=== PATIENT | female | born 1960 | race Hispanic/Latino ===

== ENCOUNTER 2020-07-09 13:21 | Emergency (ER) | payer SELFPAY ==
[2020-07-09] MEDS ORDERED: NA CHLORIDE 0.9% 500 ML ONE (14:25)
[2020-07-09] MEDS ORDERED: MORPHINE 2 MG/ML SYR ONE (14:25)
[2020-07-09] MEDS ORDERED: ONDANSETRON 4 MG/2 ML VIAL ONE ×2 (14:25→16:46)
[2020-07-09 15:11] LABS: ALT/SGPT 32 U/L (12-78); Albumin 3.7 g/dL (3.4-5.0); Alkaline Phosphatase 124 U/L (45-117); BUN Blood Urea Nitrogen 13 mg/dL (7-18); Bicarbonate 24 mmol/L (21-32); Bilirubin Direct < 0.1 mg/dL (0-0.2); Bilirubin Total 0.5 mg/dL (0.2-1.0); Glucose Level 134 mg/dL (74-106); Lipase 185 U/L (73-393); Protein, Total 7.5 g/dL (6.4-8.2); Sodium Level 141 mmol/L (136-145)
[2020-07-09 15:15] LABS: Potassium 4.1 mmol/L (3.5-5.1)
[2020-07-09 15:16] LABS: AST/SGOT 19 U/L (15-37)
[2020-07-09 15:17] LABS: Absolute Lymphocytes (CBC) 1.2 K/uL (0.7-4.9); Basophils % 0.9 % (0-1.3); Hematocrit 37.8 % (36.0-45.0); Lymphocytes % 14.3 % (15.3-44.8); MPV 8.3 fL (7.6-11.3); RBC Red Blood Cell Count 4.43 M/uL (3.86-4.86)
[2020-07-09 15:24] LABS: Urine Bacteria <20 /HPF (<20); Urine Culture Reflex Order NOT NEEDED; Urine Mucus 1+ /HPF (NONE SEEN); Urine RBC <5 /HPF (NONE SEEN)
[2020-07-09 16:10] LABS: Urine Blood 1+ (NEG); Urine Glucose NEGATIVE (NEG); Urine Protein 1+ (NEG); Urine Specific Gravity 1.025 (1.005-1.030); Urine pH 6.5 (5.0-7.0)
--- NOTE | 2020-07-09 16:33 | RAD REPORT ---
EXAM DESCRIPTION: CTAbdomen Pelvis W Contrast - 07/09/2020 4:04 pm CLINICAL HISTORY: Abdominal pain. lower abdomen pain COMPARISON: No comparisons TECHNIQUE: Biphasic CT imaging of the abdomen and pelvis was performed with 100 ml non-ionic IV cont rast. All CT scans are performed using dose optimization technique as appropriate and may include automated exposure control or mA/KV adjustment according to patient size. FINDINGS: The lung bases are clear.Moderate axial hiatal hernia. The liver, spleen, pancreas, adrenal glands and kidneys are within normal limits. No bowel obstruction, free air, free fluid or abscess. Prominent sigmoid diverticulosis coli is prese nt without diverticulitis. The appendix is normal. No evidence of significant lymphadenopathy. No suspicious bony findings. 3.5 cm right ovarian cyst. IMPRESSION: No acute intra-abdominal or pelvic finding. Sigmoid diverticulosis coli without diverticulitis.
[2020-07-09] MEDS ORDERED: KETOROLAC 30 MG/ML INJ ONE (17:13)
--- NOTE | 2020-07-09 18:06 | RAD REPORT ---
EXAM DESCRIPTION: US - Transvaginal Study Probe - 07/09/2020 5:53 pm CLINICAL HISTORY: ovarian cyst right Pelvic pain. COMPARISON: Abdomen Pelvis W Contrast dated 07/09/2020 FINDINGS: The uterus is normal in size, shape and echotexture. The uterus measures 5.4 x 5.2 x 3.5 c m. The endometrial stripe measures 2 mm, normal. Left ovary was obscured by bowel gas. Right ovary measures 4.0 x 3.8 x 3.1 cm and contains a simple appearing cyst measuring 3.4 x 3.1 cm. Normal blood flow to the right ovary. No significant pelvic ascites. IMPRESSION: 3.4 cm right ovarian cyst with normal blood flow to the right ovary seen.Given the postm enopausal status of the patient, follow-up ultrasound be recommended in 3 months. The left ovary was obscured by bowel gas.
--- NOTE | 2020-07-09 18:19 | ER ---
Nurse's Notes [facility] Name: Myrna Coleman Age: 59 yrs Sex: Female : 1960 Arrival Date: 07/09/2020 Time: 13:24 Bed 14 Private MD: Diagnosis: Other and unspecified ovarian cysts-right Presentation: 07/09 13:28 Chief complaint: Spouse and/or significant other states: "She got sick yesterday saying jd3 her midsection was hurting and she has been throwing up.". Coronavirus screen: At this time, the client does not indicate any symptoms associated with coronavirus-19. Ebola Screen: Patient negative for fever greater than or equal to 101.5 degrees Fahrenheit, and additional compatible Ebola Virus Disease symptoms. Initial Sepsis Screen: Does the patient meet any 2 criteria? No. Patient's initial sepsis screen is negative. Does the patient have a suspected source of infection? No. Patient's initial sepsis screen is negative. Risk Assessment: Do you want to hurt yourself or someone else? Patient reports no desire to harm self or others. Onset of symptoms was July 08, 2020. 13:28 Method Of Arrival: Wheelchair jd3 13:28 Acuity: ELAN 3 jd3 Historical: - Allergies: 13:29 No Known Allergies; jd3 - Home Meds: 13:29 None [Active]; jd3 - PMHx: 13:29 None; jd3 - PSHx: 13:29 Pleurx cath; jd3 - Immunization history:: Adult Immunizations not up to date. - Social history:: Smoking status: Patient reports the use of cigarette tobacco products, smokes one pack cigarettes per day. Screenin:35 Abuse screen: Denies threats or abuse. Denies injuries from another. Nutritional ca1 screening: No deficits noted. Tuberculosis screening: No symptoms or risk factors identified. Fall Risk IV access (20 points). Assessment: 13:35 General: Appears in no apparent distress. comfortable, Behavior is calm, cooperative, ca1 appropriate for age. Pain: Complains of pain in right low back Pain radiates to right lower quadrant and left lower quadrant Pain currently is 8 out of 10 on a pain scale. Pain began 1 day ago. Is continuous. Neuro: Level of Consciousness is awake, alert, obeys commands, Oriented to person, place, time, situation. Cardiovascular: Heart tones S1 S2 present Capillary refill < 3 seconds Patient's skin is warm and dry. Respiratory: Airway is patent Respiratory effort is even, unlabored, Respiratory pattern is regular, symmetrical, Breath sounds are clear bilaterally. GI: Abdomen is round non-distended, Bowel sounds present X 4 quads. Abd is soft X 4 quads Abdomen is tender to palpation in right lower quadrant Reports nausea, vomiting. : Urine is clear. EENT: No signs and/or symptoms were reported regarding the EENT system. Derm: Skin is intact, is healthy with good turgor, Skin is pink, warm \\T\\ dry. Musculoskeletal: Circulation, motion, and sensation intact. Capillary refill < 3 seconds. 14:35 Reassessment: Patient appears in no apparent distress at this time. Patient and/or ca1 family updated on plan of care and expected duration. Pain level reassessed. Patient is alert, oriented x 3, equal unlabored respirations, skin warm/dry/pink. 15:30 Reassessment: Patient appears in no apparent distress at this time. Patient and/or ca1 family updated on plan of care and expected duration. Pain level reassessed. Patient is alert, oriented x 3, equal unlabored respirations, skin warm/dry/pink. 16:30 Reassessment: Patient appears in no apparent distress at this time. Patient and/or ca1 family updated on plan of care and expected duration. Pain level reassessed. Patient is alert, oriented x 3, equal unlabored respirations, skin warm/dry/pink. 17:39 Reassessment: PT in Ultrasound at this time. ca1 17:43 Reassessment: Patient appears in no apparent distress at this time. Patient and/or ca1 family updated on plan of care and expected duration. Pain level reassessed. Patient is alert, oriented x 3, equal unlabored respirations, skin warm/dry/pink. 18:40 Reassessment: Patient appears in no apparent distress at this time. Patient is alert, ca1 oriented x 3, equal unlabored respirations, skin warm/dry/pink. Patient states feeling better. Vital Signs: 13:29 BP 180 / 63; Pulse 62; Resp 17 S; Temp 98.7(TE); Pulse Ox 99% on R/A; Weight 90.72 kg jd3 (R); Height 5 ft. 6 in. (167.64 cm) (R); Pain 8/10; 14:35 BP 173 / 75; Pulse 56; Resp 16 S; Pulse Ox 98% on R/A; ca1 15:30 BP 176 / 74; Pulse 52; Resp 16 S; Pulse Ox 100% on R/A; ca1 16:30 BP 173 / 75; Pulse 59; Resp 17 S; Pulse Ox 97% on R/A; ca1 17:43 BP 188 / 52; Pulse 61; Resp 16 S; Pulse Ox 100% on R/A; ca1 18:04 BP 175 / 71; Pulse 60; Resp 16 S; Pulse Ox 99% on R/A; ca1 18:40 BP 171 / 60; Pulse 62; Resp 16 S; Pulse Ox 99% on R/A; ca1 13:29 Body Mass Index 32.28 (90.72 kg, 167.64 cm) jd3 ED Course: 13:24 Patient arrived in ED. as 13:29 Triage completed. jd3 13:32 Arm band placed on. jd3 13:33 Quirino Zavala PA is PHCP. cp 13:33 Rory Finch MD is Attending Physician. cp 13:35 Patient has correct armband on for positive identification. Placed in gown. Bed in low ca1 position. Call light in reach. Side rails up X 1. Pulse ox on. NIBP on. Warm blanket given. 13:57 Monika Pendleton, RN is Primary Nurse. ca1 14:28 Inserted saline lock: 20 gauge in left antecubital area, using aseptic technique. Blood dh4 collected. Missed attempt(s): 20 gauge in right forearm. Missed attempt(s): 20 gauge in right forearm. 14:39 Urine Microscopic Only Sent. ca1 14:51 Inserted saline lock: 20 gauge in right antecubital area, using aseptic technique. ca1 Blood collected. 16:04 CT Abd/Pelvis - IV Contrast Only In Process Unspecified. EDMS 17:53 US Transvaginal Study (Probe) In Process Unspecified. EDMS 18:41 No provider procedures requiring assistance completed. IV discontinued, intact, ca1 bleeding controlled, No redness/swelling at site. Pressure dressing applied. Administered Medications: 14:29 Drug: NS 0.9% 500 ml Route: IV; Rate: bolus; Site: left antecubital; ca1 15:30 Follow up: Response: No adverse reaction; IV Status: Completed infusion; IV Intake: ca1 500ml 14:32 Drug: Zofran (Ondansetron) 4 mg Route: IVP; Site: left antecubital; ca1 15:30 Follow up: Response: No adverse reaction; Nausea is decreased ca1 14:33 Drug: morphine 2 mg {Note: rass 0.} Route: IVP; Site: left antecubital; ca1 15:00 Follow up: Response: No adverse reaction; Pain is decreased; RASS: Alert and Calm (0) ca1 16:35 Drug: Zofran (Ondansetron) 4 mg Route: IVP; Site: right antecubital; ca1 17:30 Follow up: Response: No adverse reaction; Nausea is decreased ca1 17:02 Drug: TORadol - Ketorolac 15 mg Route: IVP; Site: right antecubital; ca1 18:40 Follow up: Response: No adverse reaction; Pain is decreased ca1 18:32 Drug: Phenergan 12.5 mg Route: IVP; Site: right antecubital; ca1 18:40 Follow up: Response: No adverse reaction; Medication administered at discharge. ca1 Intake: 15:30 IV: 500ml; Total: 500ml. ca1 Outcome: 18:18 Discharge ordered by MD. cp 18:41 Discharged to home ambulatory, with significant other. ca1 18:41 Condition: stable 18:41 Discharge instructions given to patient, significant other, Instructed on discharge instructions, follow up and referral plans. medication usage, Demonstrated understanding of instructions, follow-up care, medications, Prescriptions given X 3. 18:49 Patient left the ED. ca1 Signatures: Dispatcher [employer] EDRosa Alexander Corey, PA PA Gucci Soriano RN RN jd3 Monika Pendleton RN RN ca1 Lonnie Lyon4
--- NOTE | 2020-07-09 18:19 | EDPHYS ---
Physician Documentation [facility] Name: Myrna Coleman Age: 59 yrs Sex: Female : 1960 Arrival Date: 07/09/2020 Time: 13:24 Bed 14 Private MD: ED Physician Rory Finch HPI: 07/09 13:48 This 59 yrs old Female presents to ER via Wheelchair with complaints of cp Abdominal Pain, Back Pain, Vomiting. 13:48 The patient presents with abdominal pain in the lower abdomen, suprapubic and right cp lower abdomen. Onset: The symptoms/episode began/occurred yesterday. The symptoms radiate to right back. Associated signs and symptoms: Pertinent positives: nausea and vomiting, Pertinent negatives: constipation, diarrhea, dysuria, fever, headache, vomiting blood. Historical: - Allergies: 13:29 No Known Allergies; jd3 - Home Meds: 13:29 None [Active]; jd3 - PMHx: 13:29 None; jd3 - PSHx: 13:29 Pleurx cath; jd3 - Immunization history:: Adult Immunizations not up to date. - Social history:: Smoking status: Patient reports the use of cigarette tobacco products, smokes one pack cigarettes per day. ROS: 13:49 Eyes: Negative for injury, pain, redness, and discharge. cp 13:49 Constitutional: Negative for body aches, chills, fever, poor PO intake. 13:49 Abdomen/GI: Positive for abdominal pain, nausea and vomiting. 13:49 Back: Positive for radiated pain, of the right low back. 13:50 Cardiovascular: Negative for chest pain. cp 13:50 Respiratory: Negative for cough, shortness of breath, wheezing. 13:50 : Negative for urinary symptoms, vaginal bleeding, vaginal discharge. 13:50 Neuro: Negative for altered mental status, headache, weakness. cp 13:50 All other systems are negative. Exam: 13:49 Head/Face: Normocephalic, atraumatic. cp 13:49 Constitutional: The patient appears in no acute distress, alert, awake, non-toxic, well developed, well nourished, uncomfortable. 13:49 Eyes: Periorbital structures: appear normal, Conjunctiva: normal, no exudate, no injection, Sclera: no appreciated abnormality, Lids and lashes: appear normal, bilaterally. 13:49 ENT: External ear(s): are unremarkable, Nose: is normal, Posterior pharynx: Airway: no evidence of obstruction, patent. 13:49 Chest/axilla: Inspection: normal, Palpation: is normal, no crepitus, no tenderness. 13:49 Cardiovascular: Rate: normal, Rhythm: regular. 13:49 Respiratory: the patient does not display signs of respiratory distress, Respirations: normal, no use of accessory muscles, no retractions, labored breathing, is not present. 13:49 Abdomen/GI: Inspection: abdomen appears normal, Bowel sounds: active, all quadrants, Palpation: soft, in all quadrants, moderate abdominal tenderness, in the suprapubic area and right lower quadrant, rebound tenderness, is not appreciated, voluntary guarding, is not appreciated, involuntary guarding, is not appreciated. 13:50 Back: pain, that is mild, of the right low back, CVA tenderness, is absent. cp 13:50 Skin: no rash present. Vital Signs: 13:29 BP 180 / 63; Pulse 62; Resp 17 S; Temp 98.7(TE); Pulse Ox 99% on R/A; Weight 90.72 kg jd3 (R); Height 5 ft. 6 in. (167.64 cm) (R); Pain 8/10; 14:35 BP 173 / 75; Pulse 56; Resp 16 S; Pulse Ox 98% on R/A; ca1 15:30 BP 176 / 74; Pulse 52; Resp 16 S; Pulse Ox 100% on R/A; ca1 16:30 BP 173 / 75; Pulse 59; Resp 17 S; Pulse Ox 97% on R/A; ca1 17:43 BP 188 / 52; Pulse 61; Resp 16 S; Pulse Ox 100% on R/A; ca1 18:04 BP 175 / 71; Pulse 60; Resp 16 S; Pulse Ox 99% on R/A; ca1 18:40 BP 171 / 60; Pulse 62; Resp 16 S; Pulse Ox 99% on R/A; ca1 13:29 Body Mass Index 32.28 (90.72 kg, 167.64 cm) jd3 MDM: 13:37 Patient medically screened. cp 18:18 Data reviewed: vital signs, nurses notes, lab test result(s), radiologic studies, CT cp scan, plain films, ultrasound. 18:18 Differential diagnosis: appendicitis, bowel obstruction, diverticulitis, cp Pyelonephritis, Ureterolithiasis, urinary tract infection, ovarian cyst. Counseling: I had a detailed discussion with the patient and/or guardian regarding: the historical points, exam findings, and any diagnostic results supporting the discharge/admit diagnosis, lab results, radiology results, the need for outpatient follow up, an OB/Gyne specialist. Response to treatment: the patient's symptoms have markedly improved after treatment, patient is well hydrated. VSS. Pain and nausea markedly improved. Vomiting resolved and patient tolerating po fluids. Will discharge to home for continued monitoring. 07/09 13:38 Order name: Basic Metabolic Panel; Complete Time: 15:36 cp 07/09 15:36 Interpretation: Normal except: CL 108; GLUC 134. cp 07/09 13:38 Order name: CBC with Diff cp 07/09 15:37 Interpretation: Normal except: TEETEE% 80.2; LYM% 14.3. cp 07/09 13:38 Order name: Hepatic Function; Complete Time: 15:36 cp 07/09 13:38 Order name: Lipase; Complete Time: 15:36 cp 07/09 13:38 Order name: Urine Microscopic Only; Complete Time: 15:36 cp 07/09 15:37 Interpretation: Normal except: SQEPI 5-10. cp 07/09 15:55 Order name: Urine Dipstick--Ancillary (enter results); Complete Time: 16:20 iw 07/09 13:52 Order name: CT Abd/Pelvis - IV Contrast Only; Complete Time: 16:36 cp 07/09 16:37 Order name: US Transvaginal Study (Probe); Complete Time: 18:17 cp 07/09 17:11 Order name: CREATININE WHOLE BLOOD; Complete Time: 18:17 EDMS 07/09 13:38 Order name: IV Saline Lock; Complete Time: 14:30 cp 07/09 13:38 Order name: Labs collected and sent; Complete Time: 14:30 cp 07/09 13:38 Order name: Urine Dipstick-Ancillary (obtain specimen); Complete Time: 14:39 cp 07/09 18:27 Order name: PO challenge; Complete Time: 18:38 cp Administered Medications: 14:29 Drug: NS 0.9% 500 ml Route: IV; Rate: bolus; Site: left antecubital; ca1 15:30 Follow up: Response: No adverse reaction; IV Status: Completed infusion; IV Intake: ca1 500ml 14:32 Drug: Zofran (Ondansetron) 4 mg Route: IVP; Site: left antecubital; ca1 15:30 Follow up: Response: No adverse reaction; Nausea is decreased ca1 14:33 Drug: morphine 2 mg {Note: rass 0.} Route: IVP; Site: left antecubital; ca1 15:00 Follow up: Response: No adverse reaction; Pain is decreased; RASS: Alert and Calm (0) ca1 16:35 Drug: Zofran (Ondansetron) 4 mg Route: IVP; Site: right antecubital; ca1 17:30 Follow up: Response: No adverse reaction; Nausea is decreased ca1 17:02 Drug: TORadol - Ketorolac 15 mg Route: IVP; Site: right antecubital; ca1 18:40 Follow up: Response: No adverse reaction; Pain is decreased ca1 18:32 Drug: Phenergan 12.5 mg Route: IVP; Site: right antecubital; ca1 18:40 Follow up: Response: No adverse reaction; Medication administered at discharge. ca1 Disposition: 19:04 Co-signature as Attending Physician, Rory Finch MD I agree with the assessment and kdr plan of care. Disposition: 07/09/20 18:18 Discharged to Home. Impression: Other and unspecified ovarian cysts - right. - Condition is Stable. - Discharge Instructions: Ovarian Cyst. - Prescriptions for Ibuprofen 800 mg Oral Tablet - take 1 tablet by ORAL route every 8 hours As needed take with food; 30 tablet. Tylenol- Codeine #3 300-30 mg Oral Tablet - take 2 tablets by ORAL route every 6 hours As needed; 20 tablet. Zofran 4 mg Oral Tablet - take 1 tablet by ORAL route every 12 hours As needed; 20 tablet. - Medication Reconciliation Form, Thank You Letter, Antibiotic Education, Prescription Opioid Use form. - Follow up: Private Physician; When: 1 week; Reason: Recheck today's complaints. - Problem is new. - Symptoms have improved. Signatures: Dispatcher [employer] EDRory Fagan MD MD kdr Page, Corey, PA PA cp Davies, Jonathon, RN RN jd3 Acob, Monika, RN RN ca1 Corrections: (The following items were deleted from the chart) 18:49 18:18 07/09/2020 18:18 Discharged to Home. Impression: Other and unspecified ovarian ca1 cysts - right. Condition is Stable. Forms are Medication Reconciliation Form, Thank You Letter, Antibiotic Education, Prescription Opioid Use. Follow up: Private Physician; When: 1 week; Reason: Recheck today's complaints. Problem is new. Symptoms have improved. cp
[2020-07-09] MEDS ORDERED: PROMETHAZINE INJ 25 MG/ML AMP ONE (18:46)
[2020-07-09 18:51] LABS: Blood Morphology Comment NOT SEEN (NOT SEEN); Platelet Estimate ADEQ; White Blood Cell Scan OK (OK)
[2020-07-09 20:13] VITALS: TEMP 98.7
[2020-07-09 20:21] VITALS: O2SAT 99
[2020-07-09 20:23] VITALS: BP 171/60
== END 2020-07-09 18:49 | disposition home or self-care (01) ==
LOC: ER 13:21
DX: N83.291 Other ovarian cyst, right side (principal); F17.210 Nicotine dependence, cigarettes, uncomplicated
CPT/HCPCS: 36415; 74177; 76830; 80048; 80076; 81003; 81015; 82565; 83690; 85025; 99284; J2270; J2405; J2550; J7040; Q9967

== ENCOUNTER 2022-01-07 22:14 | Emergency (ER) | payer SELFPAY ==
--- OUTSIDE RECORDS SUMMARY | 2022-01-07 22:17 | XMS REPORT | Continuity of Care Document ---
:1960 Author Organization [facility] t Address [address] [place] [address] Dr. Chavez [address] [place] [address] Care Team Providers Name Role Phone Austin TOLEDO Attending Clinician Unavailable Doctor Unassigned, Name Attending Clinician Unavailable Problems This patient has no known problems. Allergies, Adverse Reactions, Alerts Allergy Allergy Status Severity Reaction(s) Onset Inactive Treating Comm ents Source Name Type Date Date Clinician NO KNOWN Drug Active NPI:183 ALLERGIE Class [id number] S Social History Social Habit Start Date Stop Date Quantity Comments Source Sex Assigned At NPI :[id number] Smoking Status Start Date Stop Date Source Unknown if ever smoked NPI:[id number] Medications This patient has no known medications. Procedures Procedure Date / Time Performed Performing Clinician [facility] e ASSIGNMENT OF BENEFITS 2020-08-06 15:03:52 Doctor Unassigned, No Name Encounters Start End Encounter Admission Attending Care Care Encounter Source Date/Time Date/Time Type Type Clinicians Facility Department ID 2020-08-06 2020-08-06 Outpatient R NGOCMARIUSZ [facility] [id number] NPI:[id number] 09:30:00 09:30:00 CARYN [id number] 2020-08-06 2020-08-06 Orders Doctor RUSSELL [id number] NPI:[id number] 00:00:00 00:00:00 Only Unassigned, EVERT [id number] [place] [facility] [id number] Results Test Description Test Time Test Comments Results Result Comments Source FOLATE, RBC 2021-09-07 14:12:09 Test Item Value Reference Range Interpretation Comme nts HEMATOCRIT (test code = 1004) 34.0 % 34.0-45.0 FOLATE, RBC (test code = 2690) 809 NG/ML 499-1504 INTERPRETIVE RA NGES DEFICIENCY . . . . . . . . . . . . . . . NG/ML <=150 POSSIBLE DEFICI ENCY. . . . . . . . . . . NG/ML 151-498 SUFFICIENT . . . . . . . . . . . . . . . NG/M L 499-1504 EXCESS . . . . . . . . . . . . . . . . . NG /ML >1504 PATHOLOGIST SMEAR [id number] 07:16:26 Test Item Value Reference Range Interpretation Comments DIAGNOSIS: (test (NOTE) PERIPHERAL BLOOD SMEAR code = 8200) REVIEW:Mild clarisa rocytic, normochromic an emia. Mild thrombocyt osis. See Comment. COMMENTS: (test (NOTE) In summary, the CBC code = 8205) shows microcyti c anemia. Most commonly, this isdue to iron d eficiency anemia. Serum iron studies to incl ude ferritinmay be informative. I f iron deficiency does not exist or this d oesnot respond to iron therapy, then considerat ion could be given toothe r causes of microcytic a nemia. These include thalassemias orhemoglobinopa jessica, certain anemia of chronic disease s, defects ofporph yrin synthesis or se maritza protein deficie ncy, etc. Of note, thisd oes not show the elevat ed red cell count with prominent targe t cellstypical of thalassemia tra it or certain hemoglobinopath ies; however,if iron studies do not support iron deficiency, the n considerationco uld be given to hemogl obin electrophoresis . MICROSCOPIC (NOTE) Please see a CB C dated DESCRIPTION: (test 09/06/2021 for hematologic code = 8210) parameters. Exa mination of the peripher al smear reveals a mildl y microcytic and normochromic re d cell population with borderline anem ia. Nosignificant t arget cell formation or erythrocytosis is seen. White blood iliana ls are within normal l imits demonstrating a normaldifferent ial count and normal leuk ocyte morphology. No dysplasia issee n and blasts are not identified. Pl atelets are mildly incr eased innumber. (je; 09/07/21) PATHOLOGIST: (test (NOTE) code = 8250) Coco Aguero M.D. (florentino osborne signed) DiplomateAngelic Board of Pathol oghayley with Subspecialty Certification, Hematology CPT: (test code = 64854 8400) WBC (test code = 3.8 K/UL 3.5-11.0 1001) RBC (test code = 4.33 M/UL 3.80-5.40 1002) HEMOGLOBIN (test 11.0 G/DL 11.5-15.5 L code = 1003) HEMATOCRIT (test 34.0 % 34.0-45.0 code = 1004) MCV (test code = 78.5 fL 80.0-99.0 L 1005) MCH (test code = 25.4 PG 25.0-33.0 1006) MCHC (test code = 32.4 G/DL 31.0-36.0 1007) RDW (test code = 15.0 % 11.5-15.0 1038) NEUTROPHILS (test 46.6 % code = 1008) LYMPHOCYTES (test 32.4 % code = 1010) MONOCYTES (test 9.0 % code = 1011) EOSINOPHILS (test 10.4 % code = 1012) BASOPHILS (test 1.3 % code = 1013) NUCLEATED RBCS 0.0 /100 See_Comment [Automated m essage] The (test code = 1065) WBC'S system [facility] generated this result tra nsmitted reference range : 0.0. The reference r bhavesh was not used to int erpret this result as normal/abnormal . PLATELET COUNT 483 K/UL 130-400 H (test code = 1015) ABSOLUTE 1.75 K/UL 1.50-7.50 NEUTROPHILS (test code = 1066) ABSOLUTE 1.22 K/UL 1.00-4.00 LYMPHOCYTES (test code = 1067) ABSOLUTE MONOCYTES 0.34 K/UL 0.20-1.00 (test code = 1068) ABSOLUTE 0.39 K/UL 0.00-0.50 EOSINOPHILS (test code = 1040) ABSOLUTE BASOPHILS 0.05 K/UL 0.00-0.20 (test code = 1069) ABS NUCLEATED RBCS 0.00 K/UL 0.00-0.11 (test code = 37345) COMMENTS (test (NOTE) S LIGHT code = 1016) ANISOCYTOSIS SLIGHT MICROCYT OSIS PLATELETS APPEAR INCREASED SEE ADDITIONAL COMM ENTS BELOW: FEW ENLARGED PLATEL ETS [id number] 06:15:03 Test Item Value Reference Range Interpretation Comments FERRITIN (test code = 207) 12 NG/ML 13-200 L VITAMIN B 12 AND FOLIC [id number] 06:15:03 Test Item Value Reference Range Interpretation Comments VITAMIN B-12 (test 579 PG/ML 200-950 code = 2840) FOLIC ACID (test 6.7 UG/L SEE BELOW code = 2695) INTERPRET YAMEL RANGES DEFICIENCY . . . . . . . . . . . . . . . UG/L <4.0 POSSIBLE DEFICIENCY. . . . . . . . . . . UG/L 4.0-5.9 MCFARLANE FFICIENT . . . . . . . . . . . . . . . UG/L >=6.0 T3 [id number] 06:15:03 Test Item Value Reference Range Interpretation Comments T3 TOTAL (test code = 2818) 120 NG/DL 80-200 TSH + FREE T4 [id number] 06:15:03 Test Item Value Reference Range Interpretation Comments TSH, THIRD 3.930 UIU/ML 0.400-4.100 GENERATION (test code = 2821) FREE T4 (THYROXINE) 0.94 NG/DL 0.80-1.90 U NLESS (test code = 2823) OTHERWISE INDICATED, ALL TESTING PER FORMED ATCLINICAL PATH OLOG LABORATORIES, [facility]. [address] [place] [id number] LABORATORY DIRE CTOR: ARIELLA HOPSON M.D. CLIA NUMBER [id number] CAP ACCREDITATION N O. [id number] 03:27:14 Test Item Value Reference Range Interpretation Comments TRANSFERRIN (test code = 4936) 378 MG/DL 200-360 H IRON BINDING CAPACITY AND IRON AND % [id number] 03:17:30 Test Item Value Reference Range Interpretation Comments IRON, SERUM (test code = 2222) 40 UG/DL 37-145 UNSATURATED IBC (test code = 57935) 384 UG/DL 112-347 H CALC TOTAL IBC (test code = 2077) 424 UG/DL 250-450 CALC % IRON SAT (test code = 2079) 9 % 20-50 L TSH, THIRD [id number] 00:47:09 Test Item Value Reference Range Interpretation Comments TSH, THIRD 5.980 UIU/ML 0.400-4.100 H UNLESS GENERATION (test OTHERWISE I NDICATED, code = 2821) ALL TESTING PER FORMED ATCLINICAL PATH OLOGY LABORATORIES, [place]. [address] [place] [address] LABORATORY DIRE CTOR: ARIELLA OHPSON M.D. CLIA NUMBER [id number] CAP ACCREDITATION N O. [id number] LIPID [id number] 00:23:40 Test Item Value Reference Range Interpretation Comments CHOLESTEROL (test 260 MG/DL <200 H code = 2210) TRIGLYCERIDES (test 129 MG/DL <150 code = 2232) HDL CHOLESTEROL (test 49 MG/DL >39 code = 2220) CALC LDL CHOL (test 185 MG/DL <100 H NOTE: C ALCULATED LDL code = 2237) IS BASED ON JANNETTE-MONTALVO METHOD WHICHINCLUDES ADJUSTABLE TRIGLYCERIDE:VL DL CHOLESTEROL RAT IO.THIS FACTOR VARIES B Y MEASURED TRIGLY CERIDE AND NON-HDLCHOL ESTEROL CONCENTRATIONS WITH INCREASED CALCU LATED LDL SEENIN HIGH ER TRIGLYCERIDE OR LOWER NON-HDL SPECIME NS. FOR MOREINFORMATION , SEE CLIENT ANNOUNCE MENT AT [email or web address] /CalcLDL-C RISK RATIO LDL/HDL 3.78 RATIO <3.22 H (test code = 2238) COMPREHENSIVE METABOLIC [id number] 00:23:40 Test Item Value Reference Range Interpretation Comments GLUCOSE (test code = 101 MG/DL 70-99 H 2216) BUN (test code = 11 MG/DL -2207) CREATININE (test 0.63 MG/DL 0.60-1.30 EFFECTIVE code = 2214) 08/16/2021, [facility] HAS IMPLEMENTED THE NKF-ASN RECOMME NDED KD-EPI EGF R REFIT CALCULATI ON THAT DOES NOT INCLUDE A COEFFICIENT FOR RACE. FOR MORE INFORMATION, SE E ANNOUNCEMENT [email or web address] eGFR (2020 CKD-EPI) 100 >60 (test code = 66292) ML/MIN/1.73 CALC BUN/CREAT (test 17 RATIO 6-28 code = 2235) SODIUM (test code = 141 MEQ/L 704-811 3960) POTASSIUM (test code 3.7 MEQ/L 3.5-5.4 = 222) CHLORIDE (test code 108 MEQ/L 95-107 H = 2215) CARBON DIOXIDE (test 21 MEQ/L 19-31 code = 2206) CALCIUM (test code = 9.0 MG/DL 8.5-10.5 2208) PROTEIN, TOTAL (test 6.9 G/DL 6.1-8.3 code = 2229) ALBUMIN (test code = 4.0 G/DL 3.5-5.2 2200) CALC GLOBULIN (test 2.9 G/DL 1.9-3.7 code = 2240) CALC A/G RATIO (test 1.4 RATIO 1.0-2.6 code = 2234) BILIRUBIN, TOTAL 0.2 MG/DL See_Comment [Automated message] (test code = 220) The [employer] which generated this result transmit cely reference range : <=1.2. The refe rence range was not u sed to interpret th is result as normal/abnormal . ALKALINE PHOSPHATASE 126 U/L 40-140 (test code = 2203) AST (test code = 11 U/L 9-40 2217) ALT (test code = 13 U/L 5-40 2218) CBC W/AUTO DIFF WITH [id number] 02:20:24 Test Item Value Reference Range Interpretation Comments WBC (test code = 4.8 K/UL 3.5-11.0 1001) RBC (test code = 4.44 M/UL 3.80-5.40 1002) HEMOGLOBIN (test code 11.1 G/DL 11.5-15.5 L = 1003) HEMATOCRIT (test code 34.6 % 34.0-45.0 = 1004) MCV (test code = 77.9 fL 80.0-99.0 L 1005) MCH (test code = 25.0 PG 25.0-33.0 1006) MCHC (test code = 32.1 G/DL 31.0-36.0 1007) RDW (test code = 15.8 % 11.5-15.0 H 1038) NEUTROPHILS (test 59.6 % NOTE: EFF ECTIVE code = 1008) 07/26/2021, REFERENCE INTER VALS AND FLAGGING FORRELATIVE (%) WBC DIFFERENTIAL WI LL BE ELIMINATED REDUNDANT TOABS OLUTE COUNTS.SEE [email or web address] /luca l_CBC_reporting _upda te LYMPHOCYTES (test 26.1 % code = 1010) MONOCYTES (test code 8.0 % = 1011) EOSINOPHILS (test 4.6 % code = 1012) BASOPHILS (test code 1.5 % = 1013) IMMATURE GRANYLOCYTES 0.2 % (test code = 1036) NUCLEATED RBCS (test 0.0 /100 See_Comment [Autom ated message] code = 1065) WBC'S The system [employer] generated this result transmit cely reference range : 0.0. The refere nce range was not u sed to interpret th is result as normal/abnormal . PLATELET COUNT (test 492 K/UL 130-400 H code = 1015) ABSOLUTE NEUTROPHILS 2.84 K/UL 1.50-7.50 (test code = 1066) ABSOLUTE LYMPHOCYTES 1.24 K/UL 1.00-4.00 (test code = 1067) ABSOLUTE MONOCYTES 0.38 K/UL 0.20-1.00 (test code = 1068) ABSOLUTE EOSINOPHILS 0.22 K/UL 0.00-0.50 (test code = 1040) ABSOLUTE BASOPHILS 0.07 K/UL 0.00-0.20 (test code = 1069) ABS IMMATURE 0.01 K/UL 0.00-0.10 GRANULOCYTES (test code = 1020) ABS NUCLEATED RBCS 0.00 K/UL 0.00-0.11 (test code = 27807)
[2022-01-07] MEDS ORDERED: MORPHINE 4 MG/ML SYR ONE (23:44)
[2022-01-07] MEDS ORDERED: ONDANSETRON 4 MG/2 ML VIAL ONE (23:44)
[2022-01-07] MEDS ORDERED: FAMOTIDINE 20 MG/2 ML VIAL IV ONE (23:45)
[2022-01-08 00:04] LABS: Absolute Lymphocytes (CBC) 1.2 K/uL (0.7-4.9); Hematocrit 36.6 % (36.0-45.0); Lymphocytes % 13.9 % (15.3-44.8); MPV 7.6 fL (7.6-11.3); RBC Red Blood Cell Count 4.32 M/uL (3.86-4.86)
[2022-01-08 00:16] LABS: Albumin 3.7 g/dL (3.4-5.0); Bilirubin Total 0.4 mg/dL (0.2-1.0); Potassium 3.6 mmol/L (3.5-5.1); Protein, Total 7.6 g/dL (6.4-8.2)
[2022-01-08] MEDS ORDERED: NA CHLORIDE 0.9% 1,000 ML ONE (00:48)
[2022-01-08 02:05] LABS: Urine Blood 2+ (Negative); Urine Glucose Negative (Negative); Urine Protein 1+ (Negative); Urine Specific Gravity 1.025 (1.005-1.030)
[2022-01-08] MEDS ORDERED: CEFTRIAXONE 1000 MG/VIAL ONE (02:53)
[2022-01-08] MEDS ORDERED: WATER FOR INJ,STERILE 10 ML ONE (02:54)
[2022-01-08 03:23] LABS: Urine Bacteria 20-50 /HPF (<20); Urine Mucus 3+ /HPF (NONE SEEN)
--- NOTE | 2022-01-08 03:47 | ER ---
Nurse's Notes [facility] Name: Myrna Coleman Age: 61 yrs Sex: Female : 1960 Arrival Date: 01/07/2022 Time: 22:16 Bed 14 Private MD: Diagnosis: Upper abdominal pain, unspecified;UTI/ Urinary tract infection, site not specified;Diverticulosis;Ovarian Cyst Presentation: 01/07 22:55 Chief complaint: Spouse and/or significant other states: reports she has been lp1 vomiting since 1200 today, complaint of pain to epigastric area of abdomen; Actively vomiting during triage. Risk Assessment: Do you want to hurt yourself or someone else? Patient reports no desire to harm self or others. Onset of symptoms was January 07, 2022 at 12:00. 22:55 Method Of Arrival: Wheelchair lp1 22:55 Acuity: ELAN 2 lp1 23:10 Coronavirus screen: Vaccine status: Patient reports receiving the 2nd dose of the covid ke1 vaccine. Ebola Screen: No symptoms or risks identified at this time. Initial Sepsis Screen: Does the patient meet any 2 criteria? No. Patient's initial sepsis screen is negative. Does the patient have a suspected source of infection? No. Patient's initial sepsis screen is negative. Triage Assessment: 23:12 General: Appears uncomfortable, Behavior is appropriate for age. Pain: Complains of ke1 pain in epigastric radiating to right shoulder Pain radiates to right shoulder. GI: Reports nausea, vomiting. Historical: - Allergies: 23:11 No Known Allergies; ke1 - PMHx: 23:11 Hypertensive disorder; Cyst of ovary; ke1 - Immunization history:: Client reports receiving the 2nd dose of the Covid vaccine. - Social history:: Smoking status: Patient reports the use of cigarette tobacco products, smokes one-half pack cigarettes per day. Screenin:13 Abuse screen: Denies threats or abuse. Nutritional screening: No deficits noted. ke1 Tuberculosis screening: No symptoms or risk factors identified. Fall Risk No fall in past 12 months (0 pts). Secondary diagnosis (15 points) IV access (20 points). Ambulatory Aid- None/Bed Rest/Nurse Assist (0 pts). Gait- Normal/Bed Rest/Wheelchair (0 pts) Mental Status- Oriented to own ability (0 pts). Total Tompkins Fall Scale indicates No Risk (0-24 pts). Assessment: 23:14 GI: Abdomen is round non-distended, Bowel sounds present X 4 quads. Abd is soft X 4 ke1 quads Abdomen is tender to palpation X 4 quads. in epigastric area, right upper quadrant and left upper quadrant. : No deficits noted. 01/08 02:18 Reassessment: Patient appears in no apparent distress at this time. Patient states ke1 feeling better. Patient states symptoms have improved. Vital Signs: 01/07 23:10 BP 171 / 77; Pulse 63; Resp 17; Temp 99(O); Pulse Ox 98% on R/A; Weight 81.65 kg; ke1 Height 5 ft. 6 in. (167.64 cm); Pain 8/10; 01/08 02:23 BP 159 / 82; Pulse 66; Resp 15; Pulse Ox 99% on R/A; ke1 01/07 23:10 Body Mass Index 29.05 (81.65 kg, 167.64 cm) [facility] ED Course: 01/07 22:16 Patient arrived in ED. ja2 22:53 Sean Zapien MD is Attending Physician. 7 22:56 Triage completed. lp1 22:56 Patient has correct armband on for positive identification. Placed in gown. Bed in low lp1 position. Client placed on continuous cardiac and pulse oximetry monitoring. NIBP monitoring applied. 23:09 Trevin Rico, RN is Primary Nurse. ke1 23:10 Inserted saline lock: 20 gauge in right forearm, using aseptic technique. Blood oe collected. 01/08 01:06 CT Abd/Pelvis - IV Contrast Only In Process Unspecified. EDMS 04:54 No provider procedures requiring assistance completed. IV discontinued. [facility] Administered Medications: 01/07 23:45 Drug: Pepcid (famotidine) 20 mg Route: IVP; Site: right forearm; ke1 01/08 00:00 Follow up: Response: Marked relief of symptoms [facility] 01/07 23:45 Drug: Zofran (Ondansetron) 4 mg Route: IVP; Site: right forearm; ke1 01/08 00:00 Follow up: Response: Marked relief of symptoms [facility] 01/07 23:45 Drug: morphine 4 mg Route: IVP; Site: right forearm; ke1 01/08 00:00 Follow up: Response: Marked relief of symptoms ke1 01:28 Drug: NS 0.9% 1000 ml Route: IV; Rate: 1000 ml; Site: right forearm; ke1 02:30 Follow up: IV Status: Completed infusion ke1 03:04 Drug: Rocephin (cefTRIAXone) 1 grams Route: IV; Rate: per protocol; Site: right forearm;ke1 03:10 Follow up: IV Status: Completed infusion ke1 04:00 Follow up: Response: No adverse reaction ke1 Outcome: 03:46 Discharge ordered by . [facility] 04:54 Discharged to home ambulatory, with family. ke1 04:54 Condition: good 04:54 Discharge instructions given to patient. 04:57 Patient left the ED. ke1 Signatures: Dispatcher [employer] EDFernanda Dang, RN RN 1 Ari Hylton Maurice, MD MD 7 Hanny Bryant Kouassi, RN RN ke1 Corrections: (The following items were deleted from the chart) 00:13 01/07 23:45 Pepcid (famotidine) 20 mg IVP in right antecubital ke1 ke1 01/08 01:30 01:28 NS 0.9% 1000 ml IV at 1000 ml in right antecubital ke1 ke1
--- NOTE | 2022-01-08 03:47 | EDPHYS ---
Physician Documentation [facility] Name: Myrna Coleman Age: 61 yrs Sex: Female : 1960 Arrival Date: 01/07/2022 Time: 22:16 Bed 14 Private MD: ED Physician Sean Zapien HPI: 01/07 23:42 This 61 yrs old Female presents to ER via Wheelchair with complaints of mh7 Vomiting. 23:42 The patient presents to the emergency department with nausea, that is moderate, mh7 vomiting, that is intermittent, described as clear fluid, diarrhea, that is intermittent, abdominal pain, of the epigastric area, described as intermittent, vague,\E\ waxing and waning, and does not radiate. Onset: The symptoms/episode began/occurred today. Possible causes: unknown. The symptoms are aggravated by food , The symptoms are alleviated by nothing. Associated signs and symptoms: Pertinent positives: abdominal pain, diarrhea, dysuria, nausea, vomiting, Pertinent negatives: anorexia, belching, constipation, fever, flatulence, GI bleeding, hematuria, vaginal discharge. Severity of symptoms: At their worst the symptoms were moderate today, in the emergency department the symptoms are unchanged. Historical: - Allergies: 23:11 No Known Allergies; ke1 - PMHx: 23:11 Hypertensive disorder; Cyst of ovary; ke1 - Immunization history:: Client reports receiving the 2nd dose of the Covid vaccine. - Social history:: Smoking status: Patient reports the use of cigarette tobacco products, smokes one-half pack cigarettes per day. ROS: 23:42 Constitutional: Negative for fever, chills, and weight loss, Eyes: Negative for injury, mh7 pain, redness, and discharge, ENT: Negative for injury, pain, and discharge, Neck: Negative for injury, pain, and swelling, Cardiovascular: Negative for chest pain, palpitations, and edema, Respiratory: Negative for shortness of breath, cough, wheezing, and pleuritic chest pain, Back: Negative for injury and pain, MS/Extremity: Negative for injury and deformity, Skin: Negative for injury, rash, and discoloration, Neuro: Negative for headache, weakness, numbness, tingling, and seizure, Psych: Negative for depression, anxiety, suicide ideation, homicidal ideation, and hallucinations, Allergy/Immunology: Negative for hives, rash, and allergies, Endocrine: Negative for neck swelling, polydipsia, polyuria, polyphagia, and marked weight changes, Hematologic/Lymphatic: Negative for swollen nodes, abnormal bleeding, and unusual bruising. Exam: 23:42 Head/Face: Normocephalic, atraumatic. Eyes: Pupils equal round and reactive to light, mh7 extra-ocular motions intact. Lids and lashes normal. Conjunctiva and sclera are non-icteric and not injected. Cornea within normal limits. Periorbital areas with no swelling, redness, or edema. Neck: Trachea midline, no thyromegaly or masses palpated, and no cervical lymphadenopathy. Supple, full range of motion without nuchal rigidity, or vertebral point tenderness. No Meningismus. Chest/axilla: Normal chest wall appearance and motion. Nontender with no deformity. No lesions are appreciated. Cardiovascular: Regular rate and rhythm with a normal S1 and S2. No gallops, murmurs, or rubs. Normal PMI, no JVD. No pulse deficits. Respiratory: Lungs have equal breath sounds bilaterally, clear to auscultation and percussion. No rales, rhonchi or wheezes noted. No increased work of breathing, no retractions or nasal flaring. 23:42 Back: No spinal tenderness. No costovertebral tenderness. Full range of motion. Skin: Warm, dry with normal turgor. Normal color with no rashes, no lesions, and no evidence of cellulitis. MS/ Extremity: Pulses equal, no cyanosis. Neurovascular intact. Full, normal range of motion. Neuro: Awake and alert, GCS 15, oriented to person, place, time, and situation. Cranial nerves II-XII grossly intact. Motor strength 5/5 in all extremities. Sensory grossly intact. Cerebellar exam normal. Normal gait. Psych: Awake, alert, with orientation to person, place and time. Behavior, mood, and affect are within normal limits. 23:42 Constitutional: The patient appears in no acute distress, alert, awake, uncomfortable. 23:42 Abdomen/GI: Inspection: abdomen appears normal, Bowel sounds: normal, in all quadrants, Palpation: moderate abdominal tenderness, in the epigastric area, mass, is not appreciated, rebound tenderness, is not appreciated, voluntary guarding, is not appreciated, involuntary guarding, is not appreciated, no appreciated organomegaly, Rectal exam: the exam is deferred, because of patient request, Indicators: McBurney's point is not tender, Antunez's sign is negative, Rovsing's sign is negative, Obturator sign is negative, Psoas sign is negative, Liver: no appreciated palpable abnormalities, Hernia: not appreciated. Vital Signs: 23:10 BP 171 / 77; Pulse 63; Resp 17; Temp 99(O); Pulse Ox 98% on R/A; Weight 81.65 kg; ke1 Height 5 ft. 6 in. (167.64 cm); Pain 8/10; 01/08 02:23 BP 159 / 82; Pulse 66; Resp 15; Pulse Ox 99% on R/A; ke1 01/07 23:10 Body Mass Index 29.05 (81.65 kg, 167.64 cm) 1 MDM: 03:44 Differential diagnosis: Nonspecific abd pain, gastritis, cholecystitis, pancreatitis, mh7 diverticulitis, viral gastroenteritis, gastroenteritis. Data reviewed: vital signs, nurses notes, lab test result(s), CBC, electrolytes, urinalysis, EKG, radiologic studies, CT scan. Data interpreted: Pulse oximetry: on room air is 99 %. Interpretation: normal. Counseling: I had a detailed discussion with the patient and/or guardian regarding: the historical points, exam findings, and any diagnostic results supporting the discharge/admit diagnosis, the presence of at least one elevated blood pressure reading (>120/80) during this emergency department visit, lab results, radiology results, the need for outpatient follow up, to return to the emergency department if symptoms worsen or persist or if there are any questions or concerns that arise at home. Response to treatment: the patient's symptoms have resolved after treatment, the patient's blood pressure is in an acceptable range, mental status has returned to baseline, the patient no longer shows bradycardia, the patient is not short of breath, the patient is not tachycardic, the patient's pain is gone, the patient's temperature has normalized, patient is well hydrated. 03:46 Patient medically screened. [facility] 01/07 23:32 Order name: CBC with Diff; Complete Time: 00:16 [facility] 01/07 23:32 Order name: CMP; Complete Time: 00:16 [facility] 01/07 23:32 Order name: Lipase; Complete Time: 00:26 [facility] 01/08 02:05 Order name: Urine Dipstick-Ancillary; Complete Time: 02:05 [facility] 01/08 02:43 Order name: Urine Microscopic Only; Complete Time: 03:35 [facility] 01/08 02:43 Order name: Urine Culture [facility] 01/07 23:32 Order name: IV Saline Lock; Complete Time: 23:34 [facility] 01/07 23:32 Order name: Labs collected and sent; Complete Time: 00:14 [facility] 01/07 23:39 Order name: CT Abd/Pelvis - IV Contrast Only [facility] 01/07 23:33 Order name: EKG - Nurse/Tech; Complete Time: 23:33 [facility] 01/07 23:39 Order name: Urine Dipstick-Ancillary (obtain specimen); Complete Time: 02:19 [facility] Administered Medications: 01/07 23:45 Drug: Pepcid (famotidine) 20 mg Route: IVP; Site: right forearm; 1 01/08 00:00 Follow up: Response: Marked relief of symptoms [facility] 01/07 23:45 Drug: Zofran (Ondansetron) 4 mg Route: IVP; Site: right forearm; ke1 01/08 00:00 Follow up: Response: Marked relief of symptoms [facility] 01/07 23:45 Drug: morphine 4 mg Route: IVP; Site: right forearm; ke1 01/08 00:00 Follow up: Response: Marked relief of symptoms ke1 01:28 Drug: NS 0.9% 1000 ml Route: IV; Rate: 1000 ml; Site: right forearm; ke1 02:30 Follow up: IV Status: Completed infusion ke1 03:04 Drug: Rocephin (cefTRIAXone) 1 grams Route: IV; Rate: per protocol; Site: right forearm;ke1 03:10 Follow up: IV Status: Completed infusion ke1 04:00 Follow up: Response: No adverse reaction ke1 Disposition Summary: 01/08/22 03:46 Discharge Ordered Location: Home [facility] Problem: new [facility] Symptoms: have improved [facility] Condition: Stable [facility] Diagnosis - Upper abdominal pain, unspecified [facility] - UTI/ Urinary tract infection, site not specified [facility] - Diverticulosis [facility] - Ovarian Cyst [facility] Followup: [facility] - With: Private Physician - When: 1 - 2 days - Reason: Worsening of condition, Recheck today's complaints, Continuance of care, Re-evaluation by your physician Discharge Instructions: - Discharge Summary Sheet [facility] - Diverticulosis [facility] - Urinary Tract Infection, Adult, [id number] [facility] - Abdominal Pain, Adult, [id number] 7 - Ovarian Cyst, [id number] [facility] Forms: - Medication Reconciliation Form [facility] - Thank You Letter [facility] - Antibiotic Education [facility] - Prescription Opioid Use [facility] Prescriptions: - ondansetron 4 mg Oral tablet,disintegrating - place 1 tablet by TRANSLINGUAL route every 8 hours As needed; 10 tablet; [facility] Refills: 0, Product Selection Permitted - Pepcid 20 mg Oral Tablet - take 1 tablet by ORAL route every 12 hours for 5 days; 10 tablet; Refills: 0, [facility] Product Selection Permitted - Cipro 500 mg Oral Tablet - take 1 tablet by ORAL route every 12 hours for 7 days; 14 tablet; Refills: 0, [facility] Product Selection Permitted - dicyclomine 20 mg Oral Tablet - take 1 tablet by ORAL route 4 times per day As needed; 20 tablet; Refills: 0, [facility] Product Selection Permitted Signatures: Dispatcher [employer] Henrik Chatterjee, SENIOR PARTNER-C SENIOR PARTNER-Cla1 Sean Zapien MD MD [facility] Trevin Rico RN RN ke1
[2022-01-08 05:20] VITALS: TEMP 99
[2022-01-08 05:22] VITALS: BP 159/82; O2SAT 99
--- NOTE | 2022-01-10 14:33 | RAD REPORT ---
EXAM DESCRIPTION: CT - Abdomen Pelvis W Contrast - 01/08/2022 6:49 am CLINICAL HISTORY: Abdominal pain, acute COMPARISON: 07/09/2020 TECHNIQUE: CT of the abdomen and pelvis performed following IV administration of iodinated contras t. This exam was performed according to our departmental dose-optimization program, which includes au tomated exposure control, adjustment of the mA and/or kV according to patient size and/or use of iter ative reconstruction technique. FINDINGS: Lung Bases: Mild dependent atelectasis. Bones: Mild endplate spondylosis. Osteophytic change of the hips. Abdomen: Liver: The liver has normal size and density. No intrahepatic biliary dilatation. Gallbladder: No calcified gallstones. Spleen, Pancreas, and Adrenal Glands: The spleen, pancreas, and adrenal glands are unremarkable. Kidneys: No hydronephrosis or obstructing calculus. Vasculature: Aortoiliac atherosclerosis. IVC is unremarkable. The portal vein is patent. The proxim al visceral and renal arteries are patent. Stomach: Large hiatal hernia. Other: No free intraperitoneal air. No free fluid or lymphadenopathy. Pelvis: Bladder: Mild wall thickening of the urinary bladder. Bowel: No dilated loops of large or small bowel. Scattered diverticula of the colon. Appendix: Normal appendix. Pelvis: 4.5 cm right ovarian cyst. Uterus is not enlarged. IMPRESSION: 1. Mild wall thickening of the urinary bladder. This could be seen with cystitis. 2. 4.5 cm probably benign right ovarian cyst. Recommend follow-up pelvic US in 6-12 months. Referen ce: DION 2019;17(2):248-254 3. Large hiatal hernia. 4. Diverticulosis without evidence of acute diverticulitis. Electronically signed by: Clive De León 01/08/2022 2:20 AM CDT Due to temporary technical issues with the PACS/Fluency reporting system, reports are being signed by the in house radiologist without review as a courtesy to ensure prompt reporting. The interpreting r adiologist is fully responsible for the content of the report.
== END 2022-01-08 04:57 | disposition home or self-care (01) ==
LOC: ER 22:14
DX: N39.0 Urinary tract infection, site not specified (principal); K57.90 Diverticulosis of intestine, part unspecified, without perforation or abscess without bleeding; N83.209 Unspecified ovarian cyst, unspecified side; R11.2 Nausea with vomiting, unspecified; I10 Essential (primary) hypertension; F17.210 Nicotine dependence, cigarettes, uncomplicated
CPT/HCPCS: 36415; 74177; 80053; 81003; 81015; 83690; 85025; 87086; 87088; 96361; 96374; 96375; 99284; J2405; J3490; J7030; Q9967

== ENCOUNTER 2022-01-09 18:37 | Inpatient (IN) | payer SELFPAY ==
--- OUTSIDE RECORDS SUMMARY | 2022-01-09 18:39 | XMS REPORT | Continuity of Care Document ---
:1960 Author Organization [facility] t Address [address] [place] [address] Dr. Chavez [address] [place] [address] Care Team Providers Name Role Phone Austin TOLEDO Attending Clinician Unavailable Doctor Unassigned, Name Attending Clinician Unavailable Problems This patient has no known problems. Allergies, Adverse Reactions, Alerts Allergy Allergy Status Severity Reaction(s) Onset Inactive Treating Comm ents Source Name Type Date Date Clinician NO KNOWN Drug Active NPI:[id number] ALLERGIE Class [id number] S Social History Social Habit Start Date Stop Date Quantity Comments Source Sex Assigned At NPI :[id number] Smoking Status Start Date Stop Date Source Unknown if ever smoked NPI:[id number] Medications This patient has no known medications. Procedures Procedure Date / Time Performed Performing Clinician [facility] e ASSIGNMENT OF BENEFITS 2020-08-06 15:03:52 Doctor Unassigned, No Name Encounters Start End Encounter Admission Attending Care Care Encounter Source Date/Time Date/Time Type Type Clinicians Facility Department ID 2020-08-06 2020-08-06 Outpatient R NGOCMARIUSZ [facility] [id number] NPI:[id number] 09:30:00 09:30:00 CARYN [id number] 2020-08-06 2020-08-06 Orders Doctor RUSSELL [id number] NPI:[id number] 00:00:00 00:00:00 Only Unassigned, EVERT [id number] [place] [facility] [id number] Results Test Description Test Time Test [...] . . NG /ML >1504 PATHOLOGIST SMEAR [id number] 07:16:26 Test Item Value Reference Range Interpretation [...] Subspecialty Certification, Hematology CPT: (test code = 32201 8400) WBC (test code = 3.8 K/UL [...] The (test code = 1065) WBC'S system [facility] generated this result tra nsmitted reference range [...] RBCS 0.00 K/UL 0.00-0.11 (test code = 30274) COMMENTS (test (NOTE) S LIGHT code = 1016) ANISOCYTOSIS SLIGHT MICROCYT OSIS PLATELETS APPEAR INCREASED SEE ADDITIONAL COMM ENTS BELOW: FEW ENLARGED PLATEL ETS [id number] 06:15:03 Test Item Value Reference Range Interpretation Comments FERRITIN (test code = 207) 12 NG/ML 13-200 L VITAMIN B 12 AND FOLIC [id number] 06:15:03 Test Item Value Reference Range Interpretation [...] . . . . UG/L >=6.0 T3 [id number] 06:15:03 Test Item Value Reference Range Interpretation Comments T3 TOTAL (test code = 2818) 120 NG/DL 80-200 TSH + FREE T4 [id number] 06:15:03 Test Item Value Reference Range Interpretation Comments TSH, THIRD 3.930 UIU/ML 0.400-4.100 GENERATION (test code = 2821) FREE T4 (THYROXINE) 0.94 NG/DL 0.80-1.90 U NLESS (test code = 2823) OTHERWISE INDICATED, ALL TESTING PER FORMED [facility], [facility]. [address] [place] [address] LABORATORY DIRE CTOR: ARIELLA HOPSON M.D. CLIA NUMBER [id number] CAP ACCREDITATION N O. [id number] 03:27:14 Test Item Value Reference Range Interpretation Comments TRANSFERRIN (test code = 4936) 378 MG/DL 200-360 H IRON BINDING CAPACITY AND IRON AND % [id number] 03:17:30 Test Item Value Reference Range Interpretation Comments IRON, SERUM (test code = 2222) 40 UG/DL 37-145 UNSATURATED IBC (test code = 69626) 384 UG/DL 112-347 H CALC TOTAL IBC (test code = 2077) 424 UG/DL 250-450 CALC % IRON SAT (test code = 2079) 9 % 20-50 L TSH, THIRD [id number] 00:47:09 Test Item Value Reference Range Interpretation Comments TSH, THIRD 5.980 UIU/ML 0.400-4.100 H UNLESS GENERATION (test OTHERWISE I NDICATED, code = 2821) ALL TESTING PER FORMED [facility], [place] [address] [place] [address] LABORATORY DIRE CTOR: ARIELLA HOPSON M.D. CLIA NUMBER [id number] CAP ACCREDITATION N O. [id number] LIPID [id number] 00:23:40 Test Item Value Reference Range Interpretation [...] MOREINFORMATION , SEE CLIENT ANNOUNCE MENT AT [email or web address] [email or web address] RATIO LDL/HDL 3.78 RATIO <3.22 H (test code = 2238) COMPREHENSIVE METABOLIC [id number] 00:23:40 Test Item Value Reference Range Interpretation Comments GLUCOSE (test code = 101 MG/DL 70-99 H 2216) BUN (test code = 11 MG/DL -2207) CREATININE (test 0.63 MG/DL 0.60-1.30 EFFECTIVE code = 2214) 08/16/2021, [facility] HAS IMPLEMENTED THE NKF-ASN RECOMME NDED KD-EPI EGF R REFIT CALCULATI ON THAT DOES NOT INCLUDE A COEFFICIENT FOR RACE. FOR MORE INFORMATION, SE E ANNOUNCEMENT [email or web address] eGFR (2020 CKD-EPI) 100 >60 (test code = 46129) ML/MIN/1.73 CALC BUN/CREAT (test 17 RATIO 6-28 code = 2235) SODIUM (test code = 141 MEQ/L 760-188 1769) POTASSIUM (test code 3.7 MEQ/L 3.5-5.4 = [...] [Automated message] (test code = 220) The [employer] which generated this result transmit cely reference range : <=1.2. The refe rence range was not u sed to interpret th is result as normal/abnormal . ALKALINE PHOSPHATASE 126 U/L 40-140 (test code = 2203) AST (test code = 11 U/L 9-40 2217) ALT (test code = 13 U/L 5-40 2218) CBC W/AUTO DIFF WITH [id number] 02:20:24 Test Item Value Reference Range Interpretation [...] LL BE ELIMINATED REDUNDANT TOABS OLUTE COUNTS.SEE [email or web address] _upda te LYMPHOCYTES (test 26.1 % code = 1010) MONOCYTES (test code 8.0 % = 1011) EOSINOPHILS (test 4.6 % code = 1012) BASOPHILS (test code 1.5 % = 1013) IMMATURE GRANYLOCYTES 0.2 % (test code = 1036) NUCLEATED RBCS (test 0.0 /100 See_Comment [Autom ated message] code = 1065) WBC'S The system [employer] generated this result transmit cely reference range [...] RBCS 0.00 K/UL 0.00-0.11 (test code = 22981)
[2022-01-09] MEDS ORDERED: ONDANSETRON 4 MG (ODT) TAB ONE (19:09)
[2022-01-09 22:12] LABS: Urine Blood 2+ (Negative); Urine Glucose Negative (Negative); Urine Protein 2+ (Negative); Urine Specific Gravity >=1.030 (1.005-1.030)
[2022-01-09] MEDS ORDERED: PROMETHAZINE INJ 25 MG/ML AMP ONE (22:25)
[2022-01-09] MEDS ORDERED: NA CHLORIDE 0.9% 1,000 ML ONE (22:25)
[2022-01-09] MEDS ORDERED: FAMOTIDINE 20 MG/2 ML VIAL IV ONE (22:25)
[2022-01-09 22:27] LABS: Urine Bacteria <20 /HPF (<20); Urine Mucus HEAVY /HPF (NONE SEEN)
--- NOTE | 2022-01-09 22:58 | RAD REPORT ---
EXAM DESCRIPTION: CTAbdomen Pelvis Wo Contrast - 01/09/2022 10:45 pm CLINICAL HISTORY: Abdominal pain, acute, nonlocalized COMPARISON: Abdomen Pelvis W Contrast dated 01/08/2022; Abdomen Pelvis W Contrast dated 07/09/2020 TECHNIQUE: CT of the abdomen and pelvis was performed. All CT scans are performed using dose optimization technique as appropriate and may include automated exposure control or mA/KV adjustment according to patient size. FINDINGS: Lower chest: Small hiatal hernia. Mild coronary artery calcifications. Liver: No acute abnormality or suspicious lesions. Biliary: Distended gallbladder with new pericholecystic inflammatory stranding. Stomach: No significant focal abnormality. Duodenum: No significant focal abnormality. Pancreas: No significant abnormality. Spleen: No significant abnormality. Adrenal: No suspicious lesions. Kidney/ureter: No hydronephrosis. No renal calculi. Retroperitoneum: No retroperitoneal adenopathy. Vascular: No aneurysm. Bowel: No significant focal abnormality. No appendicitis. Peritoneum: No ascites or free air. Bladder: Grossly unremarkable. Reproductive: Right adnexal cysts This has increased in size from 03/08/2020. It measured 3.5 [address] on t hat CT, now 4.3 cm. Bones: No acute fracture. Other: n/a IMPRESSION: 1. Findings suspicious for acute cholecystitis with new inflammatory changes. Recommend clinical correlation. 2. Mildly enlarging right adnexal cyst. Recommend 12 month follow-up pelvic ultrasound.
[2022-01-09 23:00] LABS: Hematocrit 39.4 % (36.0-45.0); Lymphocytes % 10.9 % (15.3-44.8); MPV 7.5 fL (7.6-11.3); RBC Red Blood Cell Count 4.73 M/uL (3.86-4.86)
[2022-01-09] MEDS ORDERED: CEFTRIAXONE 1000 MG/VIAL ONE ×2 (23:06→23:44)
[2022-01-09 23:12] LABS: ALT/SGPT 30 U/L (12-78); AST/SGOT 9 U/L (15-37); Albumin 3.6 g/dL (3.4-5.0); Alkaline Phosphatase 126 U/L (45-117); BUN Blood Urea Nitrogen 15 mg/dL (7-18); Bicarbonate 22 mmol/L (21-32); Bilirubin Total 0.6 mg/dL (0.2-1.0); Glomerular Filtration Rate > 90 mL/min (=/>90); Glucose Level 123 mg/dL (74-106); Lipase 99 U/L (73-393); Potassium 3.3 mmol/L (3.5-5.1); Sodium Level 132 mmol/L (136-145)
[2022-01-09] MEDS ORDERED: MORPHINE 4 MG/ML SYR ONE (23:23)
--- NOTE | 2022-01-09 23:40 | EDPHYS ---
Physician Documentation [facility] Name: Myrna Coleman Age: 61 yrs Sex: Female : 1960 Arrival Date: 01/09/2022 Time: 18:38 Bed 27 Private MD: ED Physician Sean Zapien HPI: 01/09 22:00 This 61 yrs old Female presents to ER via Ambulatory with complaints of mh7 Abdominal Pain, Nausea/Vomiting. 22:00 The patient presents to the emergency department with nausea, that is moderate, mh7 vomiting, that is intermittent, described as clear fluid, diarrhea, that is intermittent, abdominal pain, of the epigastric area, described as intermittent, vague,\\E\\ waxing and waning, and does not radiate. 22:00 Onset: The symptoms/episode began/occurred 2 day(s) ago. Possible causes: unknown. The mh7 symptoms are aggravated by food , The symptoms are alleviated by nothing. Associated signs and symptoms: Pertinent negatives: anorexia, belching, constipation, dysuria, fever, flatulence, GI bleeding, hematuria, vaginal discharge. Severity of symptoms: At their worst the symptoms were moderate last night, in the emergency department the symptoms are unchanged. The patient has been recently seen at the [facility] Emergency Department, this week. Historical: - Allergies: 19:01 No Known Allergies; ph - PMHx: 19:01 Cyst of ovary; Hypertensive disorder; ph - Immunization history:: Adult Immunizations up to date, Client reports having NOT received the Covid vaccine. - Social history:: Smoking status: Patient reports the use of cigarette tobacco products, smokes one-half pack cigarettes per day. ROS: 22:00 Constitutional: Negative for fever, chills, and weight loss, Eyes: Negative for injury, mh7 pain, redness, and discharge, ENT: Negative for injury, pain, and discharge, Neck: Negative for injury, pain, and swelling, Cardiovascular: Negative for chest pain, palpitations, and edema, Respiratory: Negative for shortness of breath, cough, wheezing, and pleuritic chest pain, Back: Negative for injury and pain, : Negative for injury, bleeding, discharge, and swelling, MS/Extremity: Negative for injury and deformity, Skin: Negative for injury, rash, and discoloration, Neuro: Negative for headache, weakness, numbness, tingling, and seizure, Psych: Negative for depression, anxiety, suicide ideation, homicidal ideation, and hallucinations, Allergy/Immunology: Negative for hives, rash, and allergies, Endocrine: Negative for neck swelling, polydipsia, polyuria, polyphagia, and marked weight changes, Hematologic/Lymphatic: Negative for swollen nodes, abnormal bleeding, and unusual bruising. Exam: 22:00 Head/Face: Normocephalic, atraumatic. Eyes: Pupils equal round and reactive to light, mh7 extra-ocular motions intact. Lids and lashes normal. Conjunctiva and sclera are non-icteric and not injected. Cornea within normal limits. Periorbital areas with no swelling, redness, or edema. 22:00 Neck: Trachea midline, no thyromegaly or masses palpated, and no cervical lymphadenopathy. Supple, full range of motion without nuchal rigidity, or vertebral point tenderness. No Meningismus. Chest/axilla: Normal chest wall appearance and motion. Nontender with no deformity. No lesions are appreciated. 22:00 Respiratory: Lungs have equal breath sounds bilaterally, clear to auscultation and percussion. No rales, rhonchi or wheezes noted. No increased work of breathing, no retractions or nasal flaring. 22:00 Back: No spinal tenderness. No costovertebral tenderness. Full range of motion. Skin: Warm, dry with normal turgor. Normal color with no rashes, no lesions, and no evidence of cellulitis. MS/ Extremity: Pulses equal, no cyanosis. Neurovascular intact. Full, normal range of motion. Neuro: Awake and alert, GCS 15, oriented to person, place, time, and situation. Cranial nerves II-XII grossly intact. Motor strength 5/5 in all extremities. Sensory grossly intact. Cerebellar exam normal. Normal gait. Psych: Awake, alert, with orientation to person, place and time. Behavior, mood, and affect are within normal limits. 22:00 Constitutional: The patient appears in no acute distress, alert, awake, uncomfortable. 22:00 ENT: Mouth: Oral mucosa: dry. 22:00 Cardiovascular: Rate: tachycardic, Rhythm: regular, Pulses: no pulse deficits are appreciated, Heart sounds: normal, normal S1and S2, Edema: is not appreciated, JVD: is not appreciated. 22:00 Abdomen/GI: Inspection: abdomen appears normal, Bowel sounds: normal, in all quadrants, Palpation: moderate abdominal tenderness, in the epigastric area and right upper quadrant, mass, is not appreciated, rebound tenderness, is not appreciated, voluntary guarding, is not appreciated, involuntary guarding, is not appreciated, no appreciated organomegaly, Rectal exam: the exam is deferred, because of patient request, Indicators: McBurney's point is not tender, Antunez's sign is negative, Rovsing's sign is negative, Obturator sign is negative, Psoas sign is negative, Liver: no appreciated palpable abnormalities, Hernia: not appreciated. Vital Signs: 18:58 BP 119 / 65; Pulse 115; Resp 18; Temp 98.2; Pulse Ox 98% on R/A; Weight 81.65 kg; ph Height 5 ft. 6 in. (167.64 cm); 23:12 BP 179 / 64; Pulse 84; Resp 24; Pulse Ox 99% on R/A; ld1 01/10 00:35 BP 170 / 73; Pulse 72; Resp 19; Pulse Ox 99% on R/A; lg3 01/09 18:58 Body Mass Index 29.05 (81.65 kg, 167.64 cm) ph MDM: 01/09 23:37 Differential diagnosis: Nonspecific abd pain, gastritis, cholecystitis, pancreatitis, mh7 diverticulitis, viral gastroenteritis, gastroenteritis. Data reviewed: vital signs, nurses notes, old medical records, lab test result(s), CBC, electrolytes, urinalysis, EKG, radiologic studies, CT scan. Data interpreted: Pulse oximetry: on room air is 99 %. Interpretation: normal. Counseling: I had a detailed discussion with the patient and/or guardian regarding: the historical points, exam findings, and any diagnostic results supporting the discharge/admit diagnosis, the presence of at least one elevated blood pressure reading (>120/80) during this emergency department visit, lab results, radiology results, the need for further work-up and treatment in the hospital. Response to treatment: the patient's symptoms have mildly improved after treatment. Physician consultation: Kane Mcfarlane MD was contacted at 23:30, regarding patient's condition, and will see patient in inpatient room, would like admission per Dr. Matthew Hernandez MD. 23:39 Patient medically screened. [facility] 01/09 21:54 Order name: CBC with Diff; Complete Time: 23:30 [facility] 01/09 21:54 Order name: CMP; Complete Time: 23:30 [facility] 01/09 21:54 Order name: Lipase; Complete Time: 23:30 [facility] 01/09 22:12 Order name: Urine Microscopic Only; Complete Time: 22:35 [facility] 01/09 22:12 Order name: Urine Culture [facility] 01/09 22:13 Order name: Urine Dipstick-Ancillary; Complete Time: 22:35 [facility] 01/09 21:58 Order name: CT Abd/Pelvis - Without Contrast; Complete Time: 23:30 [facility] 01/09 22:35 Order name: Troponin High Sensitivity; Complete Time: 23:30 [facility] 01/09 23:55 Order name: COVID-19 SARS RT PCR (Document "Date of Onset" if Symptomatic) [facility] 01/10 04:00 Order name: CBC with Automated Diff [facility] 01/10 04:14 Order name: Comprehensive Metabolic Panel [facility] 01/10 04:14 Order name: Phosphorus [facility] 01/10 04:14 Order name: Magnesium [facility] 01/10 12:20 Order name: MRI [facility] 01/09 21:54 Order name: IV Saline Lock; Complete Time: 22:31 [facility] 01/09 21:54 Order name: Labs collected and sent; Complete Time: 22:31 [facility] 01/09 21:54 Order name: Urine Dipstick-Ancillary (obtain specimen); Complete Time: 22:11 [facility] 01/09 21:58 Order name: EKG; Complete Time: 21:59 [facility] 01/09 21:58 Order name: EKG - Nurse/Tech; Complete Time: 22:30 [facility] Administered Medications: 19:05 Drug: Ondansetron 4 mg Route: PO; 01/10 00:33 Follow up: Response: No adverse reaction [facility] 01/09 22:30 Drug: Phenergan (promethazine) 12.5 mg Route: IVP; Site: right antecubital; 1 01/10 00:33 Follow up: Response: No adverse reaction [facility] 01/09 22:30 Drug: Pepcid (famotidine) 20 mg Route: IVP; Site: right antecubital; [facility] 01/10 00:33 Follow up: Response: No adverse reaction 3 01/09 22:31 Drug: NS 0.9% 1000 ml Route: IV; Rate: 1000 ml; Site: right antecubital; ld1 01/10 00:33 Follow up: Response: No adverse reaction; IV Status: Completed infusion; IV Intake: lg3 1000ml 01/09 23:20 Drug: Rocephin (cefTRIAXone) 1 grams Route: IV; Rate: per protocol; Site: right ld1 antecubital; 23:21 Follow up: Response: No adverse reaction 1 01/10 00:32 Follow up: Response: No adverse reaction; IV Status: Completed infusion 3 01/09 23:21 Drug: morphine 4 mg Route: IVP; Site: right antecubital; ld1 23:21 Follow up: Response: No adverse reaction 1 01/10 00:05 Drug: Zosyn (piperacillin-tazobactam) 3.375 grams Route: IVPB; Infused Over: 60 mins; ld1 Site: right antecubital; 00:32 Follow up: Response: No adverse reaction; IV Status: Completed infusion lg3 Disposition Summary: 01/09/22 23:39 Hospitalization Ordered Hospitalization Status: Inpatient Admission [facility] Provider: Matthew Hernandez [facility] Condition: Stable [facility] Problem: new [facility] Symptoms: have improved [facility] Bed/Room Type: Standard [facility] Location: [facility] ER HOLD(01/10/22 00:22) Room Assignment: ERHOLD-(01/10/22 00:22) Diagnosis - Acute cholecystitis 7 - Nausea with vomiting, unspecified [facility] - Dehydration [facility] Forms: - Medication Reconciliation Form [facility] - SBAR form [facility] Signatures: Dispatcher [employer] EDMS Anjali Palomino RN RN Mar Espinoza RN RN Sean Zapien MD MD [facility] Mariah Watt RN RN ld1 Vicky Stevens RN lg3 Corrections: (The following items were deleted from the chart) 01/09 19:02 19:01 Allergies: Aspirin; ph ph 01/10 00:22 01/09 23:39 Telemetry/MedSurg (Inpatient) [facility] 01/10 00:22 01/09 23:39 [facility]
--- NOTE | 2022-01-09 23:40 | ER ---
Nurse's Notes [facility] Name: Myrna Coleman Age: 61 yrs Sex: Female : 1960 Arrival Date: 01/09/2022 Time: 18:38 Bed 27 Private MD: Diagnosis: Acute cholecystitis;Nausea with vomiting, unspecified;Dehydration Presentation: 01/09 18:58 Chief complaint: Spouse and/or significant other states: N/V and RLQ pain since Monday, ph was seen in ED Monday night and dx w/ diverticulitis and prescribed antibiotics and nausea medicine. Pt states that symptoms have not improved, has been unable to eat or hold anything down and that when she takes the medicines it "makes her stomach burn". Coronavirus screen: Vaccine status: Patient reports receiving the 2nd dose of the covid vaccine. Ebola Screen: No symptoms or risks identified at this time. Initial Sepsis Screen: Does the patient meet any 2 criteria? No. Patient's initial sepsis screen is negative. Does the patient have a suspected source of infection? Yes: Acute abdominal pain. Risk Assessment: Do you want to hurt yourself or someone else? Patient reports no desire to harm self or others. 18:58 Method Of Arrival: Ambulatory 18:58 Acuity: ELAN 3 01/10 00:34 Onset of symptoms was January 07, 2022. lg3 Triage Assessment: 00:34 General: Appears in no apparent distress. uncomfortable, Behavior is calm, cooperative. lg3 Pain: Complains of pain in right upper quadrant and epigastric area. GI: Reports lower abdominal pain, upper abdominal pain, epigastric pain, intolerance of fluids, intolerance of food, nausea, vomiting. Historical: - Allergies: 01/09 19:01 No Known Allergies; ph - PMHx: 19:01 Cyst of ovary; Hypertensive disorder; ph - Immunization history:: Adult Immunizations up to date, Client reports having NOT received the Covid vaccine. - Social history:: Smoking status: Patient reports the use of cigarette tobacco products, smokes one-half pack cigarettes per day. Screenin:57 Abuse screen: Denies threats or abuse. Denies injuries from another. Nutritional ld1 screening: No deficits noted. Tuberculosis screening: No symptoms or risk factors identified. Fall Risk None identified. Assessment: 21:57 Reassessment: See triage assessment. ld1 23:12 Reassessment: Patient appears in no apparent distress at this time. Patient and/or ld1 family updated on plan of care and expected duration. Pain level reassessed. Patient is alert, oriented x 3, equal unlabored respirations, skin warm/dry/pink. 01/10 00:34 GI: Bowel sounds present X 4 quads. Abd is soft Abdomen is tender to palpation. lg3 Vital Signs: 01/09 18:58 BP 119 / 65; Pulse 115; Resp 18; Temp 98.2; Pulse Ox 98% on R/A; Weight 81.65 kg; ph Height 5 ft. 6 in. (167.64 cm); 23:12 BP 179 / 64; Pulse 84; Resp 24; Pulse Ox 99% on R/A; ld1 01/10 00:35 BP 170 / 73; Pulse 72; Resp 19; Pulse Ox 99% on R/A; lg3 01/09 18:58 Body Mass Index 29.05 (81.65 kg, 167.64 cm) ph ED Course: 01/09 18:38 Patient arrived in ED. ds1 19:01 Triage completed. ph 19:02 Arm band placed on Patient placed in waiting room, Patient notified of wait time. ph 21:44 Sean Zapien MD is Attending Physician. [facility] 21:53 Mariah Watt, DEVAN is Primary Nurse. ld1 21:57 Patient has correct armband on for positive identification. Placed in gown. Bed in low ld1 position. Call light in reach. Side rails up X2. cannoneer on. Pulse ox on. NIBP on. Door closed. Noise minimized. Warm blanket given. 21:57 No provider procedures requiring assistance completed. ld1 22:18 Urine Culture Sent. ld1 22:18 Urine Microscopic Only Sent. ld1 22:30 EKG done, by ED staff. wm 22:31 Inserted saline lock: 20 gauge in right antecubital area, using aseptic technique. ld1 Blood collected. 22:46 CT Abd/Pelvis - Without Contrast In Process Unspecified. EDMS 23:21 Troponin High Sensitivity Sent. ld1 23:38 Matthew Hernandez MD is Hospitalizing Provider. 7 01/10 00:05 COVID-19 SARS RT PCR (Document "Date of Onset" if Symptomatic) Sent. ld1 03:20 Patient admitted, IV remains in place. lg3 Administered Medications: 01/09 19:05 Drug: Ondansetron 4 mg Route: PO; 01/10 00:33 Follow up: Response: No adverse reaction 3 01/09 22:30 Drug: Phenergan (promethazine) 12.5 mg Route: IVP; Site: right antecubital; 1 01/10 00:33 Follow up: Response: No adverse reaction [facility] 01/09 22:30 Drug: Pepcid (famotidine) 20 mg Route: IVP; Site: right antecubital; 1 01/10 00:33 Follow up: Response: No adverse reaction 3 01/09 22:31 Drug: NS 0.9% 1000 ml Route: IV; Rate: 1000 ml; Site: right antecubital; 1 01/10 00:33 Follow up: Response: No adverse reaction; IV Status: Completed infusion; IV Intake: lg3 1000ml 01/09 23:20 Drug: Rocephin (cefTRIAXone) 1 grams Route: IV; Rate: per protocol; Site: right ld1 antecubital; 23:21 Follow up: Response: No adverse reaction 1 01/10 00:32 Follow up: Response: No adverse reaction; IV Status: Completed infusion 3 01/09 23:21 Drug: morphine 4 mg Route: IVP; Site: right antecubital; ld1 23:21 Follow up: Response: No adverse reaction [facility] 01/10 00:05 Drug: Zosyn (piperacillin-tazobactam) 3.375 grams Route: IVPB; Infused Over: 60 mins; 1 Site: right antecubital; 00:32 Follow up: Response: No adverse reaction; IV Status: Completed infusion lg3 Intake: 00:33 IV: 1000ml; Total: 1000ml. lg3 Outcome: 01/09 23:39 Decision to Hospitalize by Provider. [facility] 01/10 03:20 Admitted to ER Hold. Please see [facility] for further documentation. lg3 Condition: stable Instructed on the need for admit. 12:45 Patient left the ED. aa5 Signatures: Dispatcher [facility] Leti Ceja ds1 Xena Mijares RN RN aa5 Mar Espinoza RN RN ph Vicky Stevens RN RN lg3 Sean Zapien MD MD mh7 Mariah Watt RN RN ld1 Barbra Jay Corrections: (The following items were deleted from the chart) 01/09 19:02 19:01 Allergies: Aspirin; ph ph
[2022-01-09] MEDS ORDERED: NA CHLORIDE 0.9% 100 ML IV ONE (23:44)
[2022-01-09] MEDS ORDERED: PIPERACIL/TAZO 3.375 GM VIAL IV ONE (23:44)
--- NOTE | 2022-01-10 00:30 | P.HP ---
Certification for Inpatient Patient admitted to: Inpatient With expected LOS: <2 Midnights Patient will require the following post-hospital care: None Practitioner: I am a practitioner with admitting privileges, knowledge of patient current condition, hospital course, and medical plan of care. Services: Services provided to patient in accordance with Admission requirements found in Title 42 Section 412.3 of the Code of Federal Regulations Patient History Date of Service: 01/10/22 Reason for admission: Cholecystitis History of Present Illness: Patient is a 61-year-old female with hypertension who presented to the ED with complaints of nausea, vomiting, and right lower quadrant pain x2 days. She was seen here in the ED 2 days ago and diagnosed with diverticulitis and prescribed antibiotics and antiemetics. Patient reports that her symptoms have not improved and she is still unable to hold anything down. Work-up revealed sodium 132, potassium 3.3, urine positive for UTI, CT abdomen pelvis showed acute cholecystitis with new inflammatory changes. Dr. Mcfarlane was notified and requested patient to be admitted to hospitalist service with him consulting. Patient is Kazakh-speaking only and hard of hearing. Her is at bedside however he does not speak Kazakh fluently. He mentioned that she had issues with her gallbladder as a child. Will admit patient for medical management. Allergies No Known Allergies Allergy (Unverified 10/13/12 04:57) Home medications list reviewed: Yes - Past Medical/Surgical History Diabetic: No -: Hypertension Past Surgical History: Patient denies surgical history Psychosocial/ Personal History: Patient lives at home with her . - Family History Brother -: Kidney disease - Social History Smoking Status: Current every day smoker Alcohol use: No CD- Drugs: No Caffeine use: Yes Place of Residence: Home Review of Systems Gastrointestinal: Nausea, Vomiting, Abdominal Pain Physical Examination - Physical Exam General: Alert, In no apparent distress HEENT: Atraumatic, PERRLA, EOMI, Sclerae nonicteric Neck: Supple, 2+ carotid pulse no bruit, No LAD, Without JVD or thyroid abnormality Respiratory: Clear to auscultation bilaterally, Normal air movement Cardiovascular: Regular rate/rhythm, Normal S1 S2 Gastrointestinal: Normal bowel sounds, Soft and benign, Non-distended, No tenderness Musculoskeletal: No tenderness Integumentary: No rashes Neurological: Normal speech, Normal strength at 5/5 x4 extr, Normal tone, Normal affect - Studies Laboratory Data (last 24 hrs) 01/09/22 22:25: Sodium 132 L, Potassium 3.3 L, BUN 15, Creatinine 0.63, Glucose 123 H, Total Bilirubin 0.6, AST 9 L, ALT 30, Alkaline Phosphatase 126 H, Lipase 99 01/09/22 22:25: WBC 9.3, Hgb 13.5, Hct 39.4, Plt Count 447 H Assessment and Plan - Problems (Diagnosis) (1) Acute cholecystitis Current Visit: Yes Status: Acute (2) Intractable vomiting with nausea Current Visit: Yes Status: Acute (3) UTI (urinary tract infection) Current Visit: Yes Status: Acute Qualifiers: Urinary tract infection type: acute cystitis (4) Hypokalemia Current Visit: Yes Status: Acute - Plan -Continue Zosyn, IVF, pain medication, and antiemetics -NPO -Hydralazine PRN blood pressure spikes -Monitor and replete electrolytes as necessary -Reconcile and continue home medications -Lovenox for VTE prophylaxis Discharge Plan: Home Plan to discharge in: 48 Hours - Advance Directives Does patient have a Living Will: No Does patient have a Durable POA for Healthcare: No - Code Status/Comfort Care Code Status Assessed: Yes (Full) Critical Care: No Time Spent Managing Pts Care (In Minutes): 50
[2022-01-10] MEDS: NA CHLORIDE 0.9% 1,000 ML IV SCH ×2 (02:51→16:45)
[2022-01-10] MEDS ORDERED: ACETAMINOPHEN 500 MG TAB PO PRN (02:51)
[2022-01-10] MEDS ORDERED: HYDRALAZINE HCL 20 MG/ML VIAL IV PRN (02:51)
[2022-01-10 03:10] VITALS: BMI 13.1
[2022-01-10] MEDS ORDERED: NA CHLORIDE 0.9% 1,000 ML ONE (03:17)
[2022-01-10 03:59] LABS: Absolute Lymphocytes (CBC) 1.4 K/uL (0.7-4.9); Hematocrit 36.8 % (36.0-45.0); Lymphocytes % 17.7 % (15.3-44.8); RBC Red Blood Cell Count 4.41 M/uL (3.86-4.86)
[2022-01-10 04:13] LABS: ALT/SGPT 106 U/L (12-78); AST/SGOT 134 U/L (15-37); Albumin 3.1 g/dL (3.4-5.0); Alkaline Phosphatase 256 U/L (45-117); BUN Blood Urea Nitrogen 13 mg/dL (7-18); Bicarbonate 26 mmol/L (21-32); Bilirubin Total 0.6 mg/dL (0.2-1.0); Glomerular Filtration Rate > 90 mL/min (=/>90); Glucose Level 116 mg/dL (74-106); Magnesium 2.2 mg/dL (1.8-2.4); Phosphorus 3.5 mg/dL (2.5-4.9); Potassium 3.8 mmol/L (3.5-5.1); Protein, Total 7.2 g/dL (6.4-8.2); Sodium Level 137 mmol/L (136-145)
[2022-01-10] MEDS ORDERED: NA CHLORIDE 0.9% 100 ML IV ONE (07:23)
[2022-01-10] MEDS ORDERED: PIPERACIL/TAZO 3.375 GM VIAL IV ONE (07:23)
[2022-01-10] MEDS: PIPER TAZO 3.375 GM in NA CHLORIDE 0.9% 100 ML IV SCH ×2 (07:36→16:44)
--- NOTE | 2022-01-10 08:56 | EKG ---
Test Date: 2022-01-09 Test Time: 22:31:51 Historical Interpreter: MEASUREMENT RESULTS: Intervals: Rate: 94 HI: 138 QRSD: 96 QT: 396 QTc: 495 [place]: P: 50 HI: 138 QRS: -50 T: 38 INTERPRETIVE STATEMENTS: Normal sinus rhythm Left anterior fascicular block Inferior infarct, age undetermined Anterolateral infarct, age undetermined Abnormal ECG Compared to ECG 01/07/2022 23:21:33 Left anterior fascicular block now present Myocardial infarct finding now present Sinus bradycardia no longer present Sinus arrhythmia no longer present ST (T wave) deviation no longer present Electronically Signed On 01-10-22 08:56:02 CDT by Magdiel Yo
[2022-01-10] MEDS ORDERED: KCL 20 MEQ/100 mL IVPB 20 MEQ/100 ML BAG IV ONE (09:00)
[2022-01-10] MEDS ORDERED: ENOXAPARIN 40 MG/0.4 ML SQ SCH (09:00)
--- NOTE | 2022-01-10 09:02 | EKG ---
Test Date: 2022-01-07 Test Time: 23:21:33 Humanities Department Chair: SELENA MEASUREMENT RESULTS: Intervals: Rate: 59 [place]: 152 QRSD: 94 QT: 448 QTc: 443 [place]: P: 32 [place]: 152 QRS: -14 T: 44 INTERPRETIVE STATEMENTS: Sinus bradycardia with sinus arrhythmia ST abnormality, possible digitalis effect Abnormal ECG No previous ECG available for comparison Electronically Signed On 01-10-22 08:57:08 CDT by Magdiel Yo
[2022-01-10] MEDS ORDERED: KCL 20 MEQ/100 mL IVPB 100 ML IV ONE (09:04)
--- NOTE | 2022-01-10 12:20 | RAD REPORT ---
EXAM DESCRIPTION: MRI - Cholangiogram - 01/10/2022 12:13 pm CLINICAL HISTORY: elevated LFT COMPARISON: No comparisons FINDINGS: Three-dimensional MRCP was performed using maximum intensity projection reconstruction on the same work station. No intrahepatic biliary tree dilatation is seen. The common bile duct is normal caliber without evide nce of retained stone, stricture or mass. The pancreatic duct is not pathologically dilated. Multiple stones identified within the gallbladder. Mild pericholecystic fluid is present. There are s tones at the gallbladder neck. Limited T2 sequences through the abdomen demonstrates no bulky adenopathy, significant free fluid or abscess. Benign lesion in the posterior aspect of the right hepatic lobe measuring 10 millimeters. IMPRESSION: Cholelithiasis with stone impacted at the gallbladder neck but no evidence of choledocho lithiasis. Correlating with the findings on the CT, it is suspicious for acute cholecystitis.
[2022-01-10] MEDS ORDERED: Ringers Lactate 1,000 ML IV ONE (12:54)
[2022-01-10] MEDS ORDERED: MIDAZOLAM HCL 2 MG/2 ML INJ ONE (12:55)
[2022-01-10] MEDS ORDERED: FENTANYL CITR 100 MCG/2 ML ONE ×2 (12:55→13:55)
[2022-01-10] MEDS ORDERED: propofoL 200 MG/20 ML VIAL IV ONE (12:55)
[2022-01-10] MEDS ORDERED: LIDOCAINE 2% MPF 5 ML VIAL ONE (12:55)
[2022-01-10] MEDS ORDERED: ROCURONIUM 50 MG/5 ML VIAL IV ONE (12:55)
[2022-01-10] MEDS ORDERED: ONDANSETRON 4 MG/2 ML VIAL ONE (12:56)
[2022-01-10] MEDS ORDERED: BUPIVACAINE 0.25% PF 10 ML VIAL ONE (13:10)
[2022-01-10] MEDS ORDERED: dexAMETHasone 4 MG/ML VIAL ONE (13:33)
--- NOTE | 2022-01-10 14:53 | P.OP ---
Preoperative diagnosis: Cholecystitis with Cholelithasis Postoperative diagnosis: Cholecystitis with Cholelithasis Primary procedure: Laparoscopic Cholecystectomy with ICG Cholangiography Anesthesia: GETA + Local Estimated blood loss: <10cc Specimen: Gallbladder Findings: Short cystic duct, abnormal cystic artery, inflammation, [id number] Complications: None Transferred to: Recovery Room Condition: Good
[2022-01-10] MEDS ORDERED: KETOROLAC 30 MG/ML INJ ONE (14:57)
[2022-01-10] MEDS ORDERED: HYDROCODONE/APAP 5/325 MG TAB PO PRN (15:15)
[2022-01-10] MEDS: PROMETHAZINE INJ 25 MG/ML AMP IV PRN ×2 (16:45→20:45)
[2022-01-10] MEDS: MORPHINE 2 MG/ML SYR IV PRN ×2 (16:46→20:54)
[2022-01-10 23:21] VITALS: O2SAT 98
[2022-01-11] MEDS: NA CHLORIDE 0.9% 1,000 ML IV SCH (00:26)
[2022-01-11] MEDS: PIPER TAZO 3.375 GM in NA CHLORIDE 0.9% 100 ML IV SCH ×2 (00:26→08:53)
--- NOTE | 2022-01-11 02:19 | OP ---
Date of Procedure: 01/10/2022 Surgeon: Kane Mcfarlane MD, Preoperative Diagnosis: Cholecystitis with cholelithiasis. Postoperative Diagnosis: Cholecystitis with cholelithiasis. Procedure Performed: Laparoscopic cholecystectomy with indocyanine green cholangiography. Anesthesia: General endotracheal plus local with 0.25% Marcaine. Estimated Blood Loss: Less than 10 cc. Specimen: Gallbladder. Findings: 1. Short cystic duct. 2. 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 3. 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 4. Cholelithiasis. 5. Cholecystitis. 6. Hydropic gallbladder, requiring decompression. Complications: None. Disposition: The patient was transferred to the recovery room in good condition. Procedure In Detail: After informed consent was obtained, the patient was brought to the operating room, prepped and draped in usual sterile fashion. After adequate anesthesia was achieved, a supraumbilical area was anesthetized with 0.25% Marcaine and sharply incised. A 5 mm trocar was placed under direct visualization without evidence of complication. Insufflation was obtained at 15 mmHg at this time. There was no injury to vital structures seen in the abdomen. Three additional trocars were placed, 2 in the epigastrium and right upper quadrant, and 1 in the right lower quadrant. All of these were similarly anesthetized and sharply incised. A 5 mm trocar was placed under direct visualization without evidence of complication. At this point, the patient was positioned head up right-side up position. Ratcheted grasper was used to grasp the patient's gallbladder and placed towards the right shoulder. The patient had Jj-John Stepan appearance of the perihepatic space with significant scarring. Additionally, omental attachments were firmly adhered to the anterior surface of the inflamed hydropic tense gallbladder. Decompression needle was brought in to decompress the gallbladder at the fundus. At this point, allowing for better manipulation, the gallbladder had an unusual blue-like orientation also jetting out laterally towards the right and ICG cholangiography allowed for visualization of the cystic duct and common duct junction, which was found to be quite short. At this point, dissection was continued down to the Brice's pouch of the gallbladder. Careful meticulous dissection was required as there were significant inflammatory changes and inflammatory rind over the anterior surface of the gallbladder. Circumferential dissection of 2 structures was identified as both the cystic duct and cystic artery confirmed with ICG cholangiography. At this point, I inspected the position of the cystic artery, which was in an unusual orientation coming up at a much more oblique angle off the right hepatic artery, which appeared to have a somewhat unusual course compared to normal anatomic position. I skeletonized these structures and went down the medial and lateral peritoneal lining of the gallbladder, mobilized the gallbladder to ensure no additional vascular structures were into the gallbladder. At this point, double titanium clips were placed doubly proximally on the cystic artery and cystic duct and distally singly on the cystic duct and artery. At this point, the LigaSure was used to divide the cystic artery at this point and the cystic duct was transected with the Endo Manasa. The gallbladder was then removed through the hepatic fossa with electrocautery required for minimal fulguration of the hepatic bed. There was some oozing, which was easily controlled with electrocautery. At this point, the gallbladder was then placed in an Endo Catch bag, removed through the umbilical trocar, and sent off for pathologic examination. The area was copiously irrigated and suctioned out until completely clear. No additional hemostatic measures were required at the end of the procedure and no leakage of bile was appreciated at the end of the procedure. The patient was positioned back in neutral position and the remaining effluent was suctioned out. Clips were found to be in good anatomic position. I then removed the umbilical trocar and closed the umbilical trocar site using a Rafael-Solis suture passer with 0 Vicryl in interrupted fashion with good approximation of the tissues. The abdomen was completely desufflated under great visualization without evidence of complication. All skin incisions were all copiously irrigated and closed with interrupted kaitlyn, and a sterile dressing was placed over top. The patient tolerated the procedure well without evidence of complication, transferred to PACU in good condition. All counts were correct at the end of the case. MARIANO/MULUGETA Voice ID: [id number] Report ID: [id number] ARYA
[2022-01-11 05:23] VITALS: TEMP 97.8
[2022-01-11 05:39] LABS: Absolute Lymphocytes (CBC) 1.1 K/uL (0.7-4.9); Lymphocytes % 11.7 % (15.3-44.8); MPV 7.3 fL (7.6-11.3); RBC Red Blood Cell Count 4.11 M/uL (3.86-4.86)
[2022-01-11 05:57] LABS: Albumin 2.6 g/dL (3.4-5.0); Bilirubin Total 0.4 mg/dL (0.2-1.0); Magnesium 2.1 mg/dL (1.8-2.4); Phosphorus 3.8 mg/dL (2.5-4.9); Potassium 3.1 mmol/L (3.5-5.1); Protein, Total 6.4 g/dL (6.4-8.2)
[2022-01-11] MEDS ORDERED: POTASSIUM CL SA 10 MEQ TAB PO ONE (06:18)
[2022-01-11 10:06] VITALS: BP 141/68
--- NOTE | 2022-01-11 10:28 | P.DS ---
Admission Date: 01/10/22 Discharge Date: 01/11/22 Disposition: ROUTINE DISCHARGE Discharge Condition: GOOD Reason for Admission: Cholecystitis Consultations: General Surgery Brief History of Present Illness: Patient is a 61-year-old female with hypertension who presented to the ED with complaints of nausea, vomiting, and right lower quadrant pain x2 days. She was seen here in the ED 2 days ago and diagnosed with diverticulitis and prescribed antibiotics and antiemetics. Patient reports that her symptoms have not improved and she is still unable to hold anything down. Work-up revealed sodium 132, potassium 3.3, urine positive for UTI, CT abdomen pelvis showed acute cholecystitis with new inflammatory changes. Dr. Mcfarlane was notified and requested patient to be admitted to hospitalist service with him consulting. Patient is Hebrew-speaking only and hard of hearing. Her is at bedside however he does not speak Hebrew fluently. He mentioned that she had issues with her gallbladder as a child. Will admit patient for medical management. Hospital Course: Patient had MRCP that showed stone in the neck of the cystic duct. She did have urgent laparoscopic cholecystectomy and she did well. She was cleared for surgical service for discharge after she tolerated our office today. She will follow-up with Dr. Mcfarlane on outpatient post hospital discharge. She will follow-up with her primary care doctor for routine posthospital discharge follow-up care. Vital Signs/Physical Exam: Temp Pulse Resp BP Pulse Ox 97.8 F 68 16 141/68 H 95 01/11/22 08:00 01/11/22 08:00 01/11/22 08:00 01/11/22 08:00 01/11/22 08:00 General: Alert, Oriented x3 HEENT: Atraumatic, Normocephalic Neck: Supple Respiratory: Normal air movement Cardiovascular: Regular rate/rhythm, Normal S1 S2 Gastrointestinal: Soft and benign Neurological: Normal speech Laboratory Data at Discharge: WBC 9.1 K/uL (4.3-10.9) D 01/11/22 05:07 Hgb 11.8 g/dL (12.0-15.0) L 01/11/22 05:07 Hct 35.0 % (36.0-45.0) L 01/11/22 05:07 Plt Count 413 K/uL (152-406) H 01/11/22 05:07 Sodium 136 mmol/L (136-145) 01/11/22 05:07 Potassium 3.1 mmol/L (3.5-5.1) L 01/11/22 05:07 BUN 15 mg/dL (7-18) 01/11/22 05:07 Creatinine 0.47 mg/dL (0.55-1.3) L 01/11/22 05:07 Glucose 84 mg/dL (74-106) 01/11/22 05:07 Phosphorus 3.8 mg/dL (2.5-4.9) 01/11/22 05:07 Magnesium 2.1 mg/dL (1.8-2.4) 01/11/22 05:07 Total Bilirubin 0.4 mg/dL (0.2-1.0) 01/11/22 05:07 AST 51 U/L (15-37) H 01/11/22 05:07 ALT 97 U/L (12-78) H 01/11/22 05:07 Alkaline Phosphatase 190 U/L (45-117) H 01/11/22 05:07 Lipase 99 U/L (73-393) 01/09/22 22:25 Diet: Regular Activity: No lifting more than 10 lbs Followup: Kane Mcfarlane MD [ACTIVE - CAN ADMIT] - NONE,NONE [Primary Care Provider] - Time spent managing pt's care (in minutes): 35
== END 2022-01-11 12:02 | disposition home or self-care (01) | DRG 418 ==
LOC: ER 18:37 → ERHOLD 01-10 00:16 → 2ND 01-10 12:57
PROVIDERS: ADMIT Hospitalist; ATTEND Internal Medicine Nephrology
PROC: BF50200 Other Imaging of Bile Ducts using Fluorescing Agent, Indocyanine Green Dye, Intraoperative (ICD-10-PCS; 2022-01-10)
PROC: 0FT44ZZ Resection of Gallbladder, Percutaneous Endoscopic Approach (ICD-10-PCS; principal; 2022-01-10 13:30)
DX: K80.00 Calculus of gallbladder with acute cholecystitis without obstruction (principal); N39.0 Urinary tract infection, site not specified; K82.1 Hydrops of gallbladder; Q44.5 Other congenital malformations of bile ducts; I10 Essential (primary) hypertension; E87.6 Hypokalemia; F17.210 Nicotine dependence, cigarettes, uncomplicated; Z20.822 Contact with and (suspected) exposure to COVID-19
CPT/HCPCS: 36415; 74176; 74181; 80053; 81003; 81015; 83690; 83735; 84100; 84484; 85025; 87086; 87088; 88304; 93005; 96361; 96365; 96375; 99285; J1100; J2250; J2270; J2405; J2543; J2550; J2704; J3010; J3480; J3490; J7030; J7120; U0003